=== PATIENT | male | born 1955 | race Caucasian/White ===

== ENCOUNTER 2019-11-21 09:55 | Outpatient (CLI) | payer OTHER, MEDICARE, SELFPAY | END 2019-11-21 09:56 | disposition home or self-care (01) | PROVIDERS: PCP Internal Medicine; Visit Provider Internal Medicine | DX: H90.3 Sensorineural hearing loss, bilateral (principal) | CPT/HCPCS: 92557; 92567 ==

== ENCOUNTER 2020-01-15 11:00 | Outpatient (RCR) | payer OTHER, MEDICARE, SELFPAY ==
--- NOTE | 2020-01-09 13:30 | PTOPEVAL ---
PHYSICAL THERAPY EVALUATION AND PLAN OF CARE 01-09-2020 The PT evaluation was completed for the diagnosis of gait instability. The plan of treatment is scheduled for 2x/week for 3 weeks. Thank you for referring Mr. Vázquez to [facility][Note 3]. Please review, sign, date and return this plan of care [facility]. I agree with and certify that the following plan of care is medically necessary. Referring Physician Date Attending Provider: Melissa Ugalde, DAT *PT Outpatient Evaluation Start: 01/09/20 12:40 Document 01/09/20 12:40 MARCIN (Rec: 01/09/20 13:30 MARCIN [id number]) Outpatient Past Medical History Neurological History Hx Cerebrovascular Accident (CVA) Yes: 2007 Hx Other Neurological Disorders Yes: neuropathy in both lower legs and feet Cardiovascular History Hx Cardiac Catheterization Yes Hx Congenital Heart Disease Yes Hx Coronary Artery Bypass Graft Yes: 2003 Hx Coronary Stent Yes: 3 stents Hx Hypertension Yes: meds Hx Myocardial Infarction Yes: 2003 Hx Pacemaker Yes Respiratory History Hx Respiratory Disorders No Significant History Gastrointestinal History Hx Cholecystectomy Yes: 2008 Genitourinary History Hx Genitourinary Disorders No Significant History Musculoskeletal History Hx Back Pain Yes: L hip and back-pain injections, bulging discs- injections Hx Orthopedic Surgery Yes: bilateral knee arthroscopy; L knee continues ache Hx Other Musculoskeletal Disorders Yes: R little toe surgery; Endocrine History Hx Diabetes Yes: pump HEENT History Hx Cataracts Yes: bilateral removal Reproductive History Hx Reproductive Disorders No Significant History Psychosocial History Hx Psychiatric Disorders No Significant History Pain History History of Any Previous or Ongoing No Significant History Instance of Pain Anesthesia History Hx Anesthesia Reactions No Significant History Evaluation Information Problem Diagnosis decreased mobility Onset few years Subjective Information gradually more problems with Query Text:As Reported By Patient/ walking, balance and mobility; Family saw Dr Birmingham-CT scan back; under care for back pain/injections ; reports 10 times in past 6 months; get lightheaded and unstable; L knee unstable; falls on uneven surface-- stairs, yard, ramps; problems getting
--- NOTE | 2020-01-13 10:40 | PCPTNOTE ---
Patient called & cancelled scheduled appointment this date due to not feeling well, called.
--- NOTE | 2020-01-21 09:25 | PCPTNOTE ---
Patient called & cancelled all scheduled appointment this date due to MD requesting patient not to drive anymore due to episodes of passing out.
--- NOTE | 2020-01-21 15:50 | PCPTNOTE ---
PHYSICAL THERAPY DISCHARGE 01-21-2020 Attending Provider: Melissa Ugalde, WET MACHINE TENDER-C Patient:Froylan Vázquez Date of :1955 Mr. Vázquez received the PT evaluation on January 08 and one treatment session for the diagnosis of gait imbalance. He called today and canceled all of the PT appointments due to not being able to drive, due to passing out. Therefore he will be discharged at this time. The goals were not addressed. Thank you for referring Froylan to [facility]. Please review, sign, date and return this discharge summary STEVIE. I have been updated about the patient's current status and I agree with discharge from the above service at this time. Referring Physician Date
== END 2020-01-22 08:43 | disposition home or self-care (01) ==
LOC: ANHPT 11:00
PROVIDERS: PCP Internal Medicine; Visit Provider Nurse Practitioner
DX: R26.89 Other abnormalities of gait and mobility (principal); Z74.09 Other reduced mobility
CPT/HCPCS: 97110; 97161

== ENCOUNTER 2020-01-28 08:54 | Outpatient (CLI) | payer OTHER, MEDICARE, SELFPAY ==
--- NOTE | ~2020-01-28 | CT_ITS ---
EXAMINATION: CT brain wo con DATE: 01/28/2020 10:49 INDICATION: Syncope. Collapse. TECHNIQUE: Computed tomography (CT) of the head was performed without intravenous contrast. The mA wa s adjusted according to patient size. Iterative reconstruction technique was employed. Exam dose: 60 5.33 mGy-cm total exam DLP. COMPARISON: 07/23/2019 CT brain FINDINGS: No intracranial mass lesion or hemorrhage or cerebrovascular accident, midline shift or mas s effects. There is mild cerebral and cerebellar volume loss not inconsistent with patient age. No ferris bdural or epidural hematoma is evident. There are internal carotid artery calcifications. There is nonspecific diminished attenuation of the cerebral white matter, likely due to chronic small vessel ischemic changes. Bone windows reveal no fracture or bone destruction of the cranial vault. Included mastoid air cells and paranasal sinuses are normally developed and aerated. IMPRESSION: No acute intracranial finding Reviewed, dictated and finalized at [facility]. Reviewed, dictated and finalized at location [facility].
[2020-01-28 10:09] LABS: Estimated Glomerular Filt Rate 26
== END 2020-01-28 08:55 | disposition home or self-care (01) ==
PROVIDERS: PCP Internal Medicine; Visit Provider Psychiatry & Neurology Neurology
DX: R55 Syncope and collapse (principal)
CPT/HCPCS: 36415; 70450

== ENCOUNTER 2020-02-26 10:27 | Outpatient (CLI) | payer OTHER, MEDICARE, SELFPAY ==
[2020-02-26 14:20] LABS: Vitamin D 25 Hydroxy 39.1 ng/mL
== END 2020-02-26 10:28 | disposition home or self-care (01) ==
LOC: ANHLAB 10:30
PROVIDERS: PCP Family Medicine; Visit Provider Family Medicine
DX: E10.9 Type 1 diabetes mellitus without complications (principal); I25.10 Atherosclerotic heart disease of native coronary artery without angina pectoris; Z79.899 Other long term (current) drug therapy; R42 Dizziness and giddiness; R55 Syncope and collapse; H81.12 Benign paroxysmal vertigo, left ear; R79.89 Other specified abnormal findings of blood chemistry; E78.2 Mixed hyperlipidemia; E78.5 Hyperlipidemia, unspecified; I10 Essential (primary) hypertension; E11.9 Type 2 diabetes mellitus without complications
CPT/HCPCS: 36415; 82306

== ENCOUNTER 2020-03-01 04:30 | Inpatient (IN) | payer OTHER, MEDICARE, SELFPAY ==
[2020-03-01] VITALS (16 sets, daily range): BP systolic 78–138; BP diastolic 47–65; PULSE 62–74; RESP 15–25; TEMP 36.3–39; O2SAT 96–100; BMI 32.2; BMI 32.5
--- NOTE | ~2020-03-01 | US_ITS ---
US renal BI 03/02/2020 11:08 Procedure: Realtime transabdominal ultrasound of the kidneys and bladder. Indication: Acute renal failure Comparison: No prior studies for comparison. Findings: Renal echotexture is normal bilaterally without hydronephrosis, contour deforming mass or r enal calculus. The right kidney measures 12.6 cm and left kidney measures 11 cm. There is a 1.5 cm le ft renal cyst. Bladder within normal limits. Impression: 1: Unremarkable renal ultrasound. No stones, solid masses or hydronephrosis. Reviewed, dictated and finalized at location [facility]. Impression: 1: Unremarkable renal ultrasound. No stones, solid masses or hydronephrosis.
--- NOTE | ~2020-03-01 | XR_ITS ---
EXAMINATION: XR chest 2V EXAM DATE: 03/01/2020 05:02 INDICATION: Weakness. Left hemiparesis. TECHNIQUE: Frontal and lateral projections of the chest obtained and reviewed. Comparison is made to prior examination from 10/18/2019. FINDINGS: Sternotomy wires are present without findings to suggest sternal dehiscence. There is a du al lead pacemaker/AICD seen with leads projecting over the expected locations of the right atrial allen endage and right ventricle. The cardiomediastinal silhouette is prominent but magnified on this AP te chnique. No confluent consolidation, pneumothorax or pleural effusion suspected. There are no osseous abnormalities identified. IMPRESSION: No acute cardiopulmonary findings. Reviewed, dictated and finalized at location A.
--- NOTE | ~2020-03-01 | CT_ITS ---
EXAMINATION: CT brain wo con EXAM DATE: 03/01/2020 05:10 INDICATION: Left-sided hemiparesis. Left leg paresthesia. TECHNIQUE: Spiral CT of the head was performed without contrast. Axial, coronal and sagittal images were reviewed. The dose-length product (DLP) for this examination was 605.33 mGy-cm. The exposure w as tailored according to patient size, and iterative reconstruction (ASIR) was used as additional dos e reduction technique. Comparison is made to prior examination from 02/27/2020. FINDINGS: There is no acute intraparenchymal hemorrhage. No evidence of intraparenchymal brain mass lesion. No evidence of acute infarction. Please note that initial head CT has limited sensitivity f or small or acute infarctions. There is mild periventricular and subcortical hypodensity, nonspecific but probably related to small vessel ischemic disease. There is mild prominence of the sulci and v entricles related to cerebral atrophy. There is intracranial carotid arteriosclerosis. There are n o extra-axial collections. There is no mass effect or midline shift. Patient has had bilateral ocul ar lens surgery. Soft tissue is unremarkable. The visualized sinuses and mastoid air cells are well aerated. There is no significant interval change. IMPRESSION: 1. No acute intracranial findings. 2. Chronic age related findings. Reviewed, dictated and finalized at location A.
--- NOTE | 2020-03-01 04:48 | ECG_ITS ---
Measurements Intervals Adams Rate: 72 P: -60 VA: 204 QRS: -18 QRSD: 170 T: 199 QT: 423 QTc: 465 Interpretive Statements SINUS RHYTHM LEFT BUNDLE BRANCH BLOCK BASELINE ARTIFACT- I, II, III, AVR, AVL, AVF, V4-V6 ABNORMAL ECG Electronically Signed On 03-01-2020 7:14:15 CDT by Ryley Chavez D.O.
[2020-03-01 04:51] LABS: Glucose Point of Care 190 (65-105)
--- NOTE | 2020-03-01 04:51 | ED.NEUROSD ---
HPI - Neuro Symptoms/Deficit General Chief Complaint: Neuro Symptoms/Deficit Stated Complaint: LEFT LEG NUMBNESS Time Seen by Provider: 03/01/20 04:48 History of Present Illness HPI Narrative: Awoke from sleep early this morning with weakness in the left arm and leg. Initially went back to sleep thinking that it would resolve on its own. Still there when he woke up again. Initially not able to move them at all. Strength is nearly back to normal at this time. He has been having issues with low blood pressure recentl. Currently wearing an event monitor. His believes that he had a fever earlier. He denies chest pain, nausea, diarrhea, palpitations, cough, SOB. Related Data Home Medications Medication Instructions Recorded Confirmed bumetanide 2 mg tablet 2 mg PO DAILY 08/23/19 02/18/20 carvedilol 6.25 mg tablet 6.25 mg PO BID 08/23/19 02/18/20 multivitamin 1 tablet PO DAILY 08/23/19 02/18/20 nitroglycerin 0.4 mg sublingual 0.4 mg SUBLINGUAL Q5M PRN 08/23/19 02/18/20 tablet aspirin 81 mg tablet,delayed 81 mg PO DAILY 09/01/19 02/18/20 release lancets #50 each 09/01/19 02/18/20 rosuvastatin 40 mg tablet 40 mg PO DAILY 09/01/19 02/18/20 cholecalciferol (vitamin D3) 100 4,000 unit PO DAILY 12/24/19 02/18/20 mcg (4,000 unit) capsule levetiracetam 250 mg tablet 250 mg PO .qhs tablet 02/18/20 02/18/20 ramipril 2.5 mg capsule 2.5 mg PO DAILY 02/24/20 Allergies Allergy/AdvReac Type Severity Reaction Status Date / Time vancomycin Allergy Mild Itching at Verified 03/01/20 05:18 IV site Review of Systems Review of Systems: All systems reviewed & are unremarkable except as noted in HPI and below Constitutional: Constitutional: Denies chills, Denies fever(s) and Reports weakness ENT: Denies dizziness Cardiovascular: Cardiovascular: Denies chest pain Respiratory: Respiratory: Denies cough and Denies dyspnea Gastrointestinal: Gastrointestinal: Denies abdominal pain Genitourinary: Genitourinary: Denies hematuria, Denies oliguria and Denies dysuria Integumentary/Breasts: Skin/Breast: Reports system reviewed and no additional complaints, except as docu Neurologic: Denies confusion, Denies dizziness, Denies syncope and Reports focal weakness PMFSH Past Medical History Medical History CAD (coronary artery disease) GERD (gastroesophageal reflux disease) History of stroke Hyperlipidemia Hypertension Pancreatitis Surgical History Surgical History History of arthroscopy of left knee History of arthroscopy of right knee History of cardiac catheterization History of carpal tunnel repair History of cholecystectomy History of coronary artery stent placement History of repair of rotator cuff History of right inguinal hernia repair Hx of CABG Pacemaker Social History Social History Smoking status: Never smoker Second hand tobacco smoke exposure: No Alcohol intake: current Drinks per week: 1 Substance use: never Gender identity (if verbalized by the patient): Male Spiritual care concerns: No Agree to blood products: Yes Exam Const: General: no acute distress and alert Nutritional Appearance: well nourished Orientation/consciousness: patient oriented x3 HENMT: Head: normal to inspection Neck: Neck: normal visual inspection and no lymphadenopathy Chest: Chest palpation & inspection: no tenderness Resp: Effort & Inspection: normal respiratory effort Auscultation: clear to auscultation bilaterally, no rales, no rhonchi and no wheezes Cardio: Jugular venous distension: no JVD Rate: regular rate Rhythm: regular rhythm GI: Inspection: non-distended GI Palp: Yes Soft to palpation and No Tenderness to palpation present (GI) Skin: General skin exam: normal color Neuro: General: patient oriented x3, moves all extremiti
[2020-03-01 05:06] LABS: Basophils Percent Auto 0.3 % (0.2-1.2); Eosinophils Absolute Auto 0.2 K/mm3 (0-0.3); Eosinophils Percent Auto 1.3 % (0-4.4); Hematocrit 40.7 % (42.0-52.0); Hemoglobin 13.5 g/dL (14.0-18.0); Immature Granulocyte Absolute 0.06 K/mm3 (0.00-0.031); Immature Granulocyte Percent A 0.4 % (0-0.5); Lymphocytes Absolute Auto 0.57 K/mm3 (0.9-3.2); Mean Corpuscular HGB Conc 33.2 g/dl (32-36); Mean Corpuscular Volume 87.3 fl (80-100); Mean Platelet Volume 10.8 fl (7.4-10.4); Monocytes Absolute Auto 0.7 K/mm3 (0.1-0.6); Monocytes Percent Auto 5.1 % (2.6-8.5); Neutrophils Absolute Auto 12.8 K/mm3 (1.3-6.7); Neutrophils Percent Auto 88.9 % (45.5-73.1); Platelet Count Result 161 k/mm3 (150-375); Red Blood Count 4.66 M/mm3 (4.6-6.20); Red Cell Distribution Width 14.6 % (11.5-14.5); White Blood Count 14.4 K/mm3 (4.5-10.0)
--- NOTE | 2020-03-01 05:10 | PC.NURSE ---
pt to xray
[2020-03-01] MEDS: SODIUM CHLORIDE 0.9% IV 1,000 ML 999 ML IV CONT (05:17)
[2020-03-01 05:18] LABS: Alanine Aminotransferase 25 U/L (4-50); Albumin Level 4.1 g/dL (3.5-5.1); Alkaline Phosphatase 71 U/L (38-126); Aspartate Amino Transferase 24 U/L (17-59); Bilirubin,Total 2.1 mg/dL (0.2-1.3); Blood Urea Nitrogen 66 mg/dL (9-20); Carbon Dioxide 23 mmol/L (22-30); Chloride 103 mmol/L (98-107); Estimated CRCL calculation 35 ml/min; Estimated Glomerular Filt Rate 29; Glucose 209 mg/dL (75-110); INR 1.1; Partial Thromboplastin Time 26.8 SECONDS (22.3-36.8); Potassium 4.7 mmol/L (3.4-5.0); Prothrombin Time 14.1 Seconds (11.1-14.7); Sodium 138 mmol/L (137-145)
[2020-03-01 05:20] LABS: CRP 3.1 mg/dL (<1.0)
--- NOTE | 2020-03-01 05:20 | PC.NURSE ---
pt provided w/ urinal for sample
[2020-03-01 05:41] LABS: Troponin I 0.045 ng/mL (0.000-0.034)
[2020-03-01 05:44] LABS: Lactic Acid Reflex 1.5 mmol/L (0.7-2.1)
[2020-03-01 06:11] LABS: Add Urine Microscopic? YES; Appearance Urine Clear (Clear); Bilirubin Urine Negative (Negative); Blood Urine Negative (Negative); Color Urine Yellow (Yellow); Glucose Urine UA Negative (Negative); Hyaline Casts Urine 30-49 /lpf; Ketones Urine Negative (Negative); Leukocyte Esterase Ur Negative LEU/UL (Negative); Mucus Urine Rare /lpf; Nitrate Urine Negative (Negative); Protein Urine 1+ mg/dL (Negative); RBC Urine 0-2 /hpf (0-2); Specific Grav Ur 1.016 (1.001-1.035); Squamous Epithelial Cell Urine Rare /hpf (Few); Urobilinogen Urine Negative mg/dL (<2.0); WBC Urine 0-3 /hpf
--- NOTE | 2020-03-01 06:40 | PC.NURSE ---
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
[2020-03-01 09:09] LABS: Glucose Point of Care 256 (65-105)
[2020-03-01 11:28] LABS: Glucose Point of Care 289 (65-105)
--- NOTE | 2020-03-01 11:56 | ADMGEN ---
This patient, Froylan Vázquez, was admitted to IMU Room 201-01. Patient/family oriented to hospital policies and general routines including ID bracelet, bed and alarms, visiting hours, pain management, procedures, bathroom and other care routines, personal items, smoking policy, room service/diet, and visiting hours. Valuables list has been completed. Information on how to activate the Rapid Response Team has been discussed. Patient/Family are encouraged to report perceived risks to care and to ask questions if they do not understand what they are told or what they should do.
--- NOTE | 2020-03-01 15:19 | PM.IMHP ---
H&P: HPI History of Present Illness Chief complaint: Left sided weakness/leukocytosis Narrative: Froylan Vázquez is a 65 year old male who has been running low-grade fevers on and off for at least 3 weeks according to his . The patient stated that through the night he was having chills and was shivering. The patient stated he was at home [facility] approximately 2 weeks ago. The patient has been feeling dizzy and his diastolic blood pressures have been low. The patient stated that he had a CT of his brain there and had a echo bubble study done there and his carotids were checked. The patient stated that next month he is due to have MRI ats. He has a pacemaker and has not been able to get MRI elsewhere. The patient had a previous stroke. However there was no acute changes on a CT scan today. The patient stated that he woke up this morning had weakness in his left arm and left leg. His that maybe his speech was slightly slurred but it was just slow. The stated the high is his temperature got was around 100 over the last 3 weeks. He states that he has tenderness on his lower abdomen only down his feet and it is just on the skin surface but has never been red. He took his insulin pump off today. He felt like he was not able to manage his blood sugars. He said his last A1c was 8.6. Gap is right at 12 today. His blood sugar was noted to be 256 and then 289. His white count was noted to be 14.4 H&H 13.5 and 40.7 which is close to his baseline. Troponin 0.045 C reactive protein 3.1. The patient denies any chest pain and a has a history of coronary artery disease. He has had 3 stents and a 5 vessel CABG in the past. Creatinine is 2.3 which is down from last month but looks like his baseline is anywhere from 1.2-1.9. The patient does have diabetic neuropathy. He recently went to the eye doctor for retinopathy and gets laser treatments. Patient was seen by primary care doctor just a few days ago for the dizziness and was felt that the patient was having episodes of syncope due to hypotension. Patient also recently saw his dividing machine operator Jovon'jayson changed his medications around patient was also treated for a urinary tract infection a couple weeks ago he had a prescription for Macrobid at that time. It looks like maybe on the of this month. Patient has been very achy. He refused flu swab.. On IV fluids in the emergency. CT of the brain shows nothing acute. Date of service is 03/01/2020 Review of Systems Review of Systems: Narrative: Fever chills shivering. No cough no nausea no vomiting no diarrhea. No sores. Patient states that his skin is very tender from his abdomen down and his skin hurts but there is no redness. He does have neuropathy to his lower extremities All systems reviewed & are unremarkable except as noted in HPI and below Constitutional: Constitutional: Reports as per HPI and Reports no additional constitutional complaints Eyes: Eyes: Reports as per HPI and Reports no additional eye complaints ENT: Reports system reviewed and no additional complaints, except as documented and Reports Normal hearing present Cardiovascular: Cardiovascular: Reports no additional cardiovascular complaints Respiratory: Respiratory: Reports no additional respiratory complaints and Reports no additional respiratory complaints Gastrointestinal: Gastrointestinal: Reports as per HPI and Reports no additional gastrointestinal complaints Musculoskeletal: Musculoskeletal: Reports no additional musculoskeletal complaints Integumentary/Breasts: Skin/Breast: Reports system reviewed and no additional complaints, except as docu and Reports as per HPI Neurologic: Reports system reviewed and no additional complaints, except as documented, Reports as per HPI and Reports Normal hearing present Psychiatric: Psychiatric: Reports no additional psychiatric complaints and Reports as per HPI Endocrine: Endocrine: Reports no additional endocrine compl
[2020-03-01] MEDS: ACETAMINOPHEN 325 MG TABLET 650 MG PO (15:58)
[2020-03-01 16:53] LABS: Glucose Point of Care 261 (65-105)
[2020-03-01] MEDS: GABAPENTIN 300 MG CAPSULE PO (16:59)
[2020-03-01 17:36] LABS: Creatinine Urine 95.4 mg/dL
[2020-03-01 17:38] LABS: Potassium Urine Random 44.5 meq/L; Sodium Urine Random 26 meq/L
[2020-03-01 17:53] LABS: Total Protein Urine Random 46 mg/dL
[2020-03-01 17:58] LABS: Influenza Control Positive
[2020-03-01 17:59] LABS: Urine Cotinine NEGATIVE
--- NOTE | 2020-03-01 18:19 | PC.NURSE ---
This patient, Froylan Vázquez, was transferred to [ICU 2 ] on 03/01/20 at 1750 Personal belongings sent with patient. Belongings list checked and signed with receiving [ ]. Report given to [Natty ]. Appropriate documentation sent with patient.
[2020-03-01] MEDS: INSULIN ASPART (*BKC) 100 UNITS/ML SUB-Q (18:42)
[2020-03-01] MEDS: HEPARIN SODIUM 5,000 UNITS/ML VIAL 5000 UNITS SUB-Q (20:08)
[2020-03-01] MEDS: levETIRAcetam 250 MG TABLET PO (20:08)
[2020-03-02] VITALS (20 sets, daily range): BP systolic 104–159; BP diastolic 58–99; PULSE 60–100; RESP 14–20; TEMP 36.4–36.8; O2SAT 95–99
[2020-03-02 05:40] LABS: Basophils Percent Auto 0.5 % (0.2-1.2); Eosinophils Absolute Auto 0.4 K/mm3 (0-0.3); Eosinophils Percent Auto 5.4 % (0-4.4); Hematocrit 38.9 % (42.0-52.0); Hemoglobin 12.8 g/dL (14.0-18.0); Immature Granulocyte Absolute 0.02 K/mm3 (0.00-0.031); Immature Granulocyte Percent A 0.3 % (0-0.5); Lymphocytes Absolute Auto 1.08 K/mm3 (0.9-3.2); Lymphocytes Percent Auto 13.9 % (18.3-44.2); Mean Corpuscular HGB Conc 32.9 g/dl (32-36); Mean Corpuscular Hemoglobin 29.1 pg (26-34); Mean Corpuscular Volume 88.4 fl (80-100); Monocytes Absolute Auto 0.8 K/mm3 (0.1-0.6); Monocytes Percent Auto 9.8 % (2.6-8.5); Neutrophils Absolute Auto 5.5 K/mm3 (1.3-6.7); Neutrophils Percent Auto 70.1 % (45.5-73.1); Platelet Count Result 119 k/mm3 (150-375); Red Cell Distribution Width 14.4 % (11.5-14.5); White Blood Count 7.8 K/mm3 (4.5-10.0)
[2020-03-02 05:54] LABS: Lactic Acid 1.3 mmol/L (0.7-2.1)
[2020-03-02 06:10] LABS: Alanine Aminotransferase 17 U/L (4-50); Albumin Level 3.4 g/dL (3.5-5.1); Alkaline Phosphatase 62 U/L (38-126); Aspartate Amino Transferase 18 U/L (17-59); Bilirubin,Total 2.4 mg/dL (0.2-1.3); Blood Urea Nitrogen 46 mg/dL (9-20); CRP 23.2 mg/dL (<1.0); Calcium 8.4 mg/dL (8.4-10.2); Carbon Dioxide 24 mmol/L (22-30); Chloride 104 mmol/L (98-107); Estimated CRCL calculation 55 ml/min; Estimated Glomerular Filt Rate 51; Glucose 265 mg/dL (75-110); Magnesium 2.2 mg/dL (1.6-2.3); Potassium 4.2 mmol/L (3.4-5.0); Sodium 136 mmol/L (137-145)
--- NOTE | 2020-03-02 08:19 | PM.IMPN ---
Progress Note: A&P Assessment and Plan (1) Fever: Code(s): R50.9 - Fever, unspecified Status: Acute Assessment and Plan: Temp to 102. CXR clear. UA clear. Influenza negative. BCx NGTD. COVID negative now. No clear source for fever. CRP 23 but WBC normal. Low plt to 119 but doubt TTP given the improvement. Consider lymphoma or autoimmune. Consider CT scan of the chest/abdomen/pelvis. Check LDH, etc. (2) Acute left-sided weakness: Code(s): R53.1 - Weakness Status: Acute Assessment and Plan: Patient has hx of CVA with residual left sided weakness. Patient had an acute worsening of the left sided weakness but this has resolved. CT brain showing no acute findings. Suspect the weakness is just worsening of his chronic weakness related to the fever. He has a MRI scheduled for later on in March. Patient up walking to the BR. Consider PT/OT but seems to have recovered well. Contineu to monitor. (3) Vertigo: Onset Date: ~01/2020 Code(s): R42 - Dizziness and giddiness Status: Acute Assessment and Plan: The patient is being worked up for this. Patient stated he has been having syncopal episodes and seizures and is due to have a MRI next month at [facility] that is Pacemaker friendly. Defer to outpatient for further. Neuro consult ordered. (4) Congestive heart failure: Code(s): I50.9 - Heart failure, unspecified Status: Chronic Assessment and Plan: BP soft on admission so Coreg, bumex and rampipril on hold. Will monitor for today. Add back meds as BP tolerates. BP better; will resume Coreg low dose and follow. (5) Elevated troponin: Code(s): R79.89 - Other specified abnormal findings of blood chemistry Status: Acute Assessment and Plan: Trop slightly elevated to 0.045 but normal on repeat. No complaints of CP. Suspect this is related to the the TRNETON. EKG showing LBBB but seen last admission. Continue to monitor. Cardiology consulted and appreciate their input. (6) ARF (acute renal failure): Code(s): N17.9 - Acute kidney failure, unspecified Status: Acute Assessment and Plan: Cr 2.3 on admission but improved with IV fluids. Renal ultrasound ordered. Discussed with Nephrology. Continue to monitor. This was similar to his last hospitalization. Renal US normal. (7) Hyperlipidemia: Code(s): E78.5 - Hyperlipidemia, unspecified Status: Chronic Assessment and Plan: LFTs okay. Continue with Crestor. (8) Type 1 diabetes mellitus on insulin therapy: Code(s): E10.9 - Type 1 diabetes mellitus without complications Status: Chronic Assessment and Plan: A1c 13.8 in August but he states his last one 8.6. Glucose reviewed on 03/02/20. Glucose running in the 200's. Will add Lantus tonight and consider Novolog at meals. If feels better tomorrow, will consider resuming insulin pump tomorrow. (9) Diabetic neuropathy associated with diabetes mellitus due to underlying condition: Code(s): E08.40 - Diabetes mellitus due to underlying condition with diabetic neuropathy, unspecified Status: Chronic Assessment and Plan: Stable. Gabapentin resumed. (10) Benign essential hypertension: Code(s): I10 - Essential (primary) hypertension Status: Acute Assessment and Plan: BP reviewed on 03/02/20. Blood pressure meds remain on hold. Contineu to monitor. Resume meds as BP tolerates. (11) CAD (coronary artery disease): Code(s): I25.10 - Atherosclerotic heart disease of [place] coronary artery without angina pectoris Status: Chronic Assessment and Plan: Isosorbide on hold. Continue with aspirin and Plavix. Subjective Date/time seen: 03/02/20 08:19 Interval history: 65yo male with hx of CVA and DM here for left sided weakness and fever. History reviewed. Patient denies any chest p
[2020-03-02] MEDS: GABAPENTIN 300 MG CAPSULE PO ×3 (08:22→17:01)
[2020-03-02] MEDS: levETIRAcetam 250 MG TABLET PO ×2 (08:22→21:11)
[2020-03-02] MEDS: CLOPIDOGREL BISULFATE 75 MG TABLET PO (08:22)
[2020-03-02] MEDS: ROSUVASTATIN 10 MG TABLET 40 MG PO (08:22)
[2020-03-02] MEDS: ISOSORBIDE MONONITRATE 30 MG TAB.ER.24H PO (08:22)
[2020-03-02] MEDS: ASPIRIN 81 MG ENTERIC TABLET PO (08:22)
[2020-03-02] MEDS: PANTOPRAZOLE 40 MG TABLET PO (08:22)
[2020-03-02] MEDS: CHOLECALCIFEROL 1,000 UNIT TABLET 4000 UNITS PO (08:22)
[2020-03-02] MEDS: HEPARIN SODIUM 5,000 UNITS/ML VIAL 5000 UNITS SUB-Q ×2 (08:23→23:00)
[2020-03-02] MEDS: INSULIN ASPART (*BKC) 100 UNITS/ML SUB-Q ×3 (08:23→17:08)
--- NOTE | 2020-03-02 08:53 | PM.CNNEP ---
Assessment and Plan Assessment and plan (1) ARF (acute renal failure): Code(s): N17.9 - Acute kidney failure, unspecified Status: Acute (2) Fever: Code(s): R50.9 - Fever, unspecified Status: Acute (3) Benign essential hypertension: Code(s): I10 - Essential (primary) hypertension Status: Acute (4) Elevated troponin: Code(s): R79.89 - Other specified abnormal findings of blood chemistry Status: Acute Assessment and Plan: . Additional Plan Froylan has acute kidney injury/acute renal failure as evidenced by his labs on admission. However, as already noted by labs done this morning, his kidney function has already improved significantly. Testing today in conjunction with history would argue that he probably had significant volume depletion possibly from dehydration or possibly due to over-diuresis along with his antihypertensive medications. His urine electrolytes are quite suggestive of volume depletion/prerenal azotemia as well. Furthermore, with IV fluids as well as holding his antihypertensive medications which included diuretics, his kidney function is already improving. He does have a low platelet count which brings up the concern for possible TTP or ITP particularly given the history however the fact that his kidney functions improves remarkably since admission with conservative therapy seems argue less likely against this. At this point, I would follow the trend of his repeat labs and urine output on the hopes that ongoing conservative therapy that is already been instituted will get his kidney function back to baseline. If it fails to do so, then I will proceed with further testing to ensure we are not missing any other acute pathology that may be affecting his kidney function. I will continue follow patient with you while he remains hospitalized and make further recommendations during his hospital course Thank you for allowing me to participate in care this patient. History of Present Illness Reason for Consult Consult date: 03/02/20 Reason for consult: acute renal failure Chief Complaint Chief complaint: Left sided weakness/leukocytosis History of Present Illness Narrative: The patient is a 65 year old male with a past medical history as outlined who presented to [facility] ER with complaints of low-grade fevers and weakness. According to the patient as well as review of the electronic medical record, he has been having on and off fevers for last 3 weeks. More recently which prompted his visit to the ER, he had had significant chills and significant shivering. Associated symptoms included feeling dizzy and lightheaded as well as episodes of low blood pressure. Apparently, he was recently hospitalized at [facility] 40 symptoms and had extensive workup and evaluation at that time which included imaging of his brain, echocardiogram, and bilateral carotids which was essentially unremarkable except for his known history and the neck is tentative says Khushio was an MRI of his brain but due to the fact that he had a pacemaker this could not be done during that hospital stay. He more recently saw his primary care physician for some of the symptoms and was felt that his profound hypotension at that time was likely the culprit with regard to his lightheadedness and dizziness. In any case, as already mentioned, because of the multitude of the symptoms as well as his recent hospitalization and the presence of chills and shivers more recently, he presented to [facility] ER for further evaluation. Workup and evaluation emergency room demonstrated the patient to be quite hypotensive with a systolic BP in the 80s. Routine blood test demonstrated elevated white blood cell count an elevated BUN and creatinine above his baseline. CT scan of his brain as well as his chest x-ray was without any acute pathology. Given the constellation of symptoms that led to
--- NOTE | 2020-03-02 11:18 | PM.CNCAR ---
Assessment and Plan Assessment and plan (1) Elevated troponin: Code(s): R79.89 - Other specified abnormal findings of blood chemistry Status: Acute Assessment and Plan: Mild, indeterminate troponin elevation at this time. No anginal symptoms. Left bundle branch on EKG. Will clarify chronicity. Clinically, presentation not consistent with acute coronary syndrome most likely type 2 infarct secondary to acute on chronic renal insufficiency, known LV dysfunction and underlying CAD. Repeat troponin for trend. (2) CAD (coronary artery disease): Code(s): I25.10 - Atherosclerotic heart disease of [place] coronary artery without angina pectoris Status: Chronic Assessment and Plan: History of remote CABG, PCI circumflex 2014, high-grade AV block 2014 Medtronic dual chamber pacemaker, acute coronary syndrome December 2016 high-grade stenosis RCA 2 drug-eluting stents proximal distal RCA known POULTRY KILLER LAD, patent RUIZ to LAD, patent vein graft to diagonal branch. Continue dual antiplatelet therapy, statin. (3) History of syncope: Code(s): Z87.898 - Personal history of other specified conditions Status: Acute Assessment and Plan: Documented significant orthostasis in setting or ARF at presentation. Outpatient pt description of events varies without clear syncope but noted impaired level of consciousness which may be consistent with seizure. Depending upon context and postural orientation, sxs may also be related to intravascular volume depletion and/or autonomic dysfunction. After extensive review of outpatient records from [facility] and clinical description by patient as well as documented orthostasis here in the hospital likely related to intravascular volume depletion +/- autonomic dysfunction. Low-grade febrile illness coupled with antihypertensives and previous diuretic use (Bumex) may explain recurrent episodes with acute on chronic renal insufficiency improved with IV fluids. Seizure disorder cannot be excluded and was started on Keppra by Dr. Birmingham as an outpatient. He has not had recurrent events since starting Keppra. Neurology to see pt. (4) Congestive heart failure: Code(s): I50.9 - Heart failure, unspecified Status: Chronic Assessment and Plan: Compensated at this time. Monitor volume status closely. Continue medical therapy continue low doses carvedilol as BP tolerates unless significant orthostasis persists. (5) Fever: Code(s): R50.9 - Fever, unspecified Status: Acute Assessment and Plan: Etiology unknown. COVID-19 pending. Given the patient's intermittent fevers, 102? at presentation, varying symptoms including myalgias, shivering alternating chills, weakness concerning for viral syndrome. Thrombocytopenia concerning and is new compared to prior records end of January at [facility]. Symptoms may be consistent with COVID-19. Flu swab negative. Patient denied known sick contacts. (6) Orthostatic hypotension: Code(s): I95.1 - Orthostatic hypotension Status: Acute Assessment and Plan: As above. Hold on diuretic therapy and EFRAIN-inhibitor. May hold isosorbide mononitrate if symptomatic orthostasis. (7) Acute on chronic renal failure: Code(s): N17.9 - Acute kidney failure, unspecified; N18.9 - Chronic kidney disease, unspecified Status: Acute Assessment and Plan: Improved with IV fluid since admission. Renal ultrasound negative. Febrile illness may having contributing to intravascular volume depletion in addition to antihypertensive therapy contributing to worsening renal function. (8) Thrombocytopenia: Code(s): D69.6 - Thrombocytopenia, unspecified Status: Acute Assessment and Plan: Continue to monitor closely. Remains on dual antiplatelet therapy. If continues to decline check heparin-induced thrombocytopenia panel given recent hospitalization (9) Cardiomyopathy:
[2020-03-02 12:53] LABS: Troponin I 0.033 ng/mL (0.000-0.034)
[2020-03-02 17:31] LABS: SARS-CoV-2 RNA PCR Negative
[2020-03-02 18:12] LABS: Glucose Point of Care 329 (65-105)
[2020-03-02 18:12] LABS: Glucose Point of Care 339 (65-105)
[2020-03-02 18:12] LABS: Glucose Point of Care 277 (65-105)
[2020-03-02 21:25] LABS: Glucose Point of Care 364 (65-105)
[2020-03-02] MEDS: carvediloL 3.125 MG TABLET PO (23:00)
[2020-03-02] MEDS: INSULIN GLARGINE (*BKC) 100 UNITS/ML 20 UNITS SUB-Q (23:00)
[2020-03-03] VITALS (17 sets, daily range): BP systolic 99–164; BP diastolic 49–71; PULSE 58–74; RESP 16–20; TEMP 36.5–36.8; O2SAT 97–98; BMI 31.8
[2020-03-03 04:17] LABS: Basophils Percent Auto 0.3 % (0.2-1.2); Eosinophils Absolute Auto 0.4 K/mm3 (0-0.3); Eosinophils Percent Auto 5.5 % (0-4.4); Hematocrit 34.5 % (42.0-52.0); Hemoglobin 11.7 g/dL (14.0-18.0); Immature Granulocyte Absolute 0.02 K/mm3 (0.00-0.031); Immature Granulocyte Percent A 0.3 % (0-0.5); Lymphocytes Absolute Auto 1.11 K/mm3 (0.9-3.2); Lymphocytes Percent Auto 14.6 % (18.3-44.2); Mean Corpuscular HGB Conc 33.9 g/dl (32-36); Mean Corpuscular Hemoglobin 29.4 pg (26-34); Mean Corpuscular Volume 86.7 fl (80-100); Mean Platelet Volume 11.1 fl (7.4-10.4); Monocytes Absolute Auto 0.6 K/mm3 (0.1-0.6); Monocytes Percent Auto 8.4 % (2.6-8.5); Neutrophils Absolute Auto 5.4 K/mm3 (1.3-6.7); Neutrophils Percent Auto 70.9 % (45.5-73.1); Platelet Count Result 137 k/mm3 (150-375); Red Blood Count 3.98 M/mm3 (4.6-6.20); Red Cell Distribution Width 14.2 % (11.5-14.5); White Blood Count 7.6 K/mm3 (4.5-10.0)
[2020-03-03 05:39] LABS: Alanine Aminotransferase 16 U/L (4-50); Albumin Level 3.3 g/dL (3.5-5.1); Alkaline Phosphatase 53 U/L (38-126); Aspartate Amino Transferase 25 U/L (17-59); Blood Urea Nitrogen 37 mg/dL (9-20); CRP 16.3 mg/dL (<1.0); Calcium 8.5 mg/dL (8.4-10.2); Carbon Dioxide 20 mmol/L (22-30); Chloride 105 mmol/L (98-107); Estimated CRCL calculation 70 ml/min; Estimated Glomerular Filt Rate > 60; Glucose 378 mg/dL (75-110); Lactate Dehydrogenase 542 U/L (313-618); Magnesium 2.3 mg/dL (1.6-2.3); Potassium 4.6 mmol/L (3.4-5.0); Sodium 134 mmol/L (137-145)
[2020-03-03 08:10] LABS: Glucose Point of Care 324 (65-105)
[2020-03-03] MEDS: INSULIN ASPART (*BKC) 100 UNITS/ML SUB-Q ×2 (08:30→12:44)
[2020-03-03] MEDS: CHOLECALCIFEROL 1,000 UNIT TABLET 4000 UNITS PO (08:31)
[2020-03-03] MEDS: GABAPENTIN 300 MG CAPSULE PO ×2 (08:31→12:44)
[2020-03-03] MEDS: CLOPIDOGREL BISULFATE 75 MG TABLET PO (08:31)
[2020-03-03] MEDS: ROSUVASTATIN 10 MG TABLET 40 MG PO (08:31)
[2020-03-03] MEDS: levETIRAcetam 250 MG TABLET PO (08:32)
[2020-03-03] MEDS: ISOSORBIDE MONONITRATE 30 MG TAB.ER.24H PO (08:32)
[2020-03-03] MEDS: carvediloL 3.125 MG TABLET PO (08:32)
[2020-03-03] MEDS: ASPIRIN 81 MG ENTERIC TABLET PO (08:32)
[2020-03-03] MEDS: PANTOPRAZOLE 40 MG TABLET PO (08:32)
[2020-03-03] MEDS: HEPARIN SODIUM 5,000 UNITS/ML VIAL 5000 UNITS SUB-Q (08:32)
--- NOTE | 2020-03-03 11:07 | CONS_ITS ---
DATE OF CONSULTATION: HISTORY: A 65-year-old right-handed male, has been admitted to [facility] through the emergency room with the history of having a low-grade fever off and on for at least 3 weeks along with the chills and shivering at nighttime. He also reported that he was at the [facility] approximately 2 weeks ago and had been feeling dizzy with his diastolic blood pressure running low. He had a CT scan of the brain there and echo bubble study along with the carotid. Next month, he was supposed to have MRI at [facility]. He has a pacemaker and has not been able to get MRI elsewhere. CT scan at this particular time revealed no changes. He woke up this morning and had weakness in left upper and left lower extremity along with the possibly slurred speech. At night, his temperature was around 100 over the last 3 weeks. He also complained of being tender in the lower abdomen. He took his insulin pump off. He was unable to manage his blood sugar. His last A1c was 8.6 with a blood sugar of 256 and 289 and a WBC count of 14.4 with hemoglobin 13.5, which is at his baseline. His troponin was 0.05. C-reactive protein was 3.1. He had no associated chest discomfort and had no history of coronary artery disease. He has undergone 3 stents and 5-vessel CABG in the past. His creatinine is 2.3, which is down from the last month. He is recently seen by the eye physician with the documentation of retinopathy and he gets the laser treatment. He has been having syncopal episode due to hypotension. At the time of admission, he has ongoing history of as mentioned above: 1. Coronary artery disease with congestive heart failure and grade 1 diastolic dysfunction. 2. Diabetic retinopathy. 3. GERD. 4. Stroke. 5. Hyperlipidemia. 6. Hypertension. 7. Obstructive sleep apnea. 8. Pancreatitis. He has undergone multiple surgeries as mentioned, inguinal hernial repair, arthroplasty of the right ankle, arthroscopy of left knee and right knee, cardiac catheterization, carpal tunnel repair bilaterally, cholecystectomy, coronary artery stent placement x3, rotator cuff bilaterally, right inguinal hernial repair, pacemaker due to complete block. HABITS: He is never a smoker, never a drinker. MEDICATIONS: Has been taking multiple medications as outlined. ALLERGIES: HE IS ALLERGIC TO VANCOMYCIN. PHYSICAL EXAMINATION: VITAL SIGNS: Evaluation up until now revealed him to be afebrile with blood pressure of 78/47 and repeat 116/59. HEAD: Normocephalic with no cranial bruit. EAR, NOSE, THROAT: Normal. NECK: Supple with no cervical bruit. No thyromegaly. No lymphadenopathy. HEART: Regular. LUNGS: Clear to auscultation. ABDOMEN: Soft with no organomegaly. NEUROLOGICAL: He is awake, alert, oriented x3. Speech not dysphasic, not dysarthric, not dysphonic. Pupils round, regular. Gallardo of vision full. Extraocular movements full. Face symmetrical. Tongue midline. Motor examination revealed him to have decreased strength in the hands in addition to the decreased sensation distally. Reflexes sluggish and plantars downgoing. Range of motion of shoulders are also somewhat limited. Evaluation up until now revealed CBC with WBC 4.4, hemoglobin 13.5, platelet count 161. Basic metabolic panel normal except the BUN 66, creatinine 2.3, glucose 209, calcium 9.0. Troponin less than 0.045. Hepatic enzymes normal except total bilirubin is 2.1, and the UA is with 1+ protein. CT of the head negative. Chest x-ray negative. IMPRESSION: Intermittent recurrent neurological symptomatology for which patient has been advised by his previous neurologist to have the MRI at the [facility] because of the pacemaker, which is looking forward over the next 7-10 days. Otherwise, general
[2020-03-03 12:24] LABS: Glucose Point of Care 352 (65-105)
--- NOTE | 2020-03-03 12:55 | PM.PNCARD ---
Progress Note: A&P Assessment and Plan (1) Elevated troponin: Code(s): R79.89 - Other specified abnormal findings of blood chemistry Status: Acute Assessment and Plan: Mild, indeterminate troponin elevation at this time. No anginal symptoms. Clinically, presentation not consistent with acute coronary syndrome most likely type 2 infarct secondary to acute on chronic renal insufficiency, known LV dysfunction and underlying CAD. Patient will follow-up with Dr. Ramirez as an outpatient within the next 2-4 weeks. No further inpatient cardiovascular workup indicated at this time. Follow with PCP and Dr. Ramirez as an outpatient. Stable for discharge provided patient is asymptomatic and not significant orthostatic this afternoon. (2) CAD (coronary artery disease): Code(s): I25.10 - Atherosclerotic heart disease of [place] coronary artery without angina pectoris Status: Chronic Assessment and Plan: History of remote CABG, PCI circumflex 2014, high-grade AV block 2014 Medtronic dual chamber pacemaker, acute coronary syndrome December 2016 high-grade stenosis RCA 2 drug-eluting stents proximal distal RCA known DEVELOPING MACHINE TENDER LAD, patent RUIZ to LAD, patent vein graft to diagonal branch. Continue dual antiplatelet therapy, statin. (3) History of syncope: Code(s): Z87.898 - Personal history of other specified conditions Status: Acute Assessment and Plan: Significantly orthostatic this morning as documented. Repeat pending. If remains orthostatic would hold Bumex for now as well as isosorbide mononitrate. Monitor BP, ambulate with caution very closely. Report BP readings in symptoms to office. Monitor daily weight. (4) Congestive heart failure: Code(s): I50.9 - Heart failure, unspecified Status: Chronic Assessment and Plan: Compensated at this time. Monitor volume status closely. Continue medical therapy continue low doses carvedilol as BP tolerates unless significant orthostasis persists. Given recurrent falls, acute renal failure necessitating discontinuation of diuretic and EFRAIN-inhibitor therapy will hold for the time being although patient would clearly benefit and likely will require resumption in the near future. (5) Fever: Code(s): R50.9 - Fever, unspecified Status: Acute Assessment and Plan: No recurrence, COVID negative. Per primary service. (6) Orthostatic hypotension: Code(s): I95.1 - Orthostatic hypotension Status: Acute Assessment and Plan: As above. Hold on diuretic therapy and EFRAIN-inhibitor. Hold isosorbide mononitrate (7) Acute on chronic renal failure: Code(s): N17.9 - Acute kidney failure, unspecified; N18.9 - Chronic kidney disease, unspecified Status: Acute Assessment and Plan: Resolved with IV fluids and discontinuation EFRAIN-inhibitor and diuretic therapy. (8) Thrombocytopenia: Code(s): D69.6 - Thrombocytopenia, unspecified Status: Acute Assessment and Plan: Continue to monitor closely. Remains on dual antiplatelet therapy. If continues to decline check heparin-induced thrombocytopenia panel given recent hospitalization (9) Cardiomyopathy: Code(s): I42.9 - Cardiomyopathy, unspecified Status: Acute Assessment and Plan: EF 30-35%, compensated. Given left bundle, LV dysfunction and frequent pacing on last interrogation as appropriate in the future consider upgrade to biventricular device. Defer to Dr. Ramirez as outpatient. (10) Left bundle branch block: Code(s): I44.7 - Left bundle-branch block, unspecified Status: Acute Assessment and Plan: Follow-up with Dr. Ramirez as scheduled. (11) Pacemaker: Code(s): Z95.0 - Presence of cardiac pacemaker Status: Acute Assessment and Plan: May return child monitor. Subjective Date/time seen: Date of service: 03/03/20 12:55 Follow-up for elevated troponin, CAD
--- NOTE | 2020-03-03 18:00 | PM.DS ---
DS: Admitting Diagnosis Admitting Diagnosis Admitting Diagnosis: Fever, unspecified DS: Discharge Diagnosis Discharge Diagnosis (1) Fever: Code(s): R50.9 - Fever, unspecified Status: Acute Assessment and Plan: Temp to 102 with on admission. CXR clear. UA clear. Influenza negative. BCx NGTD. COVID negative now. No clear source for fever. CRP 23 but WBC normal. Low plt to 119 but doubt TTP given the improvement and 126 K day of discharge. Remained afebrile for some 36 hours assumed probable viral infection. Up in about feeling well and able to be discharged home. (2) Acute left-sided weakness: Code(s): R53.1 - Weakness Status: Acute Assessment and Plan: Patient has hx of CVA with residual left sided weakness. Patient had an acute worsening of the left sided weakness but this resolved. CT brain showing no acute findings. Suspect the weakness is just worsening of his chronic weakness related to the fever. He has a MRI scheduled for later March.8 Patient up walking to the . PT/OT but seems to have recovered well. Contineu to monitor. (3) Vertigo: Onset Date: ~01/2020 Code(s): R42 - Dizziness and giddiness Status: Acute Assessment and Plan: The patient is being worked up for this. Patient stated he has been having syncopal episodes and seizures and is due to have a MRI next month at [facility] that is Pacemaker friendly. Defer to outpatient for further. Neuro consulted and no changes made. Suggest follow-up with urology in [place] for MRI (4) Congestive heart failure: Code(s): I50.9 - Heart failure, unspecified Status: Chronic Assessment and Plan: BP soft on admission so Coreg, bumex and rampipril on hold. Will monitor for today. Add back meds as BP tolerates. BP better; cardiology resumed Coreg at low dose and held nitrate and JEROME-inhibitor and diuretic (5) Elevated troponin: Code(s): R79.89 - Other specified abnormal findings of blood chemistry Status: Acute Assessment and Plan: Trop slightly elevated to 0.045 but normal on repeat. No complaints of CP. Suspect this is related to the the [place]. EKG showing LBBB but seen last admission. Continue to monitor. Cardiology consulted and they felt the same (6) ARF (acute renal failure): Code(s): N17.9 - Acute kidney failure, unspecified Status: Acute Assessment and Plan: Cr 2.3 on admission but improved with IV fluids. Renal ultrasound no obstruction or abnormalities. Creatinine 1.1 day of discharge (7) Hyperlipidemia: Code(s): E78.5 - Hyperlipidemia, unspecified Status: Chronic Assessment and Plan: LFTs okay. Continue with Crestor. (8) Type 1 diabetes mellitus on insulin therapy: Code(s): E10.9 - Type 1 diabetes mellitus without complications Status: Chronic Assessment and Plan: A1c 13.8 in August but he states his last one 8.6. Glucose reviewed on 03/03/20. Glucose running in the 200's. . resuming insulin pump on discharge (9) Diabetic neuropathy associated with diabetes mellitus due to underlying condition: Code(s): E08.40 - Diabetes mellitus due to underlying condition with diabetic neuropathy, unspecified Status: Chronic Assessment and Plan: Stable. Gabapentin resumed. (10) Benign essential hypertension: Code(s): I10 - Essential (primary) hypertension Status: Acute Assessment and Plan: BP reviewed on 03/03/20. Blood pressure meds remain on hold. Contineu to monitor. Resumed Coreg on discharge but continue to hold diuretic nitrate and Jerome (11) CAD (coronary artery disease): Code(s): I25.10 - Atherosclerotic heart disease of [place] coronary artery without angina pectoris Status: Chronic Assessment and Plan: Isosorbide on hold. Continue with aspirin and Plavix. At discharge DS: Summary H
[2020-03-05 04:24] LABS: Osmolality, Urine 539 mOsm/kg (50-1200)
[2020-03-05 12:48] LABS: Myoglobin, Urine <27 mcg/L (<28)
[2020-03-05 17:22] LABS: Calculated Total (E+NE) 20 mcg/g cr (9-74); Creatinine, Urine 90 mg/dL (20-320); Dopamine, Urine 58 mcg/g cr (40-390); Epinephrine, Urine 4 mcg/g cr (2-16); Norepinephrine, Urine 16 mcg/g cr (7-65)
== END 2020-03-03 16:40 | disposition home or self-care (01) | DRG 864 ==
LOC: ANHED 07:17 → ANHICU 03-02 01:58 → ANHIMU 03-03 14:10 → ANHICU 03-05 14:35 → ANHIMU 03-05 14:35
PROVIDERS: Internal Medicine Cardiovascular Disease; Nurse Practitioner; Admitting Provider Family Medicine; Emergency Provider Emergency Medicine; PCP Family Medicine; Visit Provider Internal Medicine
DX: R50.9 Fever, unspecified (principal); N17.9 Acute kidney failure, unspecified; I13.0 Hypertensive heart and chronic kidney disease with heart failure and stage 1 through stage 4 chronic kidney disease, or unspecified chronic kidney disease; I50.9 Heart failure, unspecified; E10.40 Type 1 diabetes mellitus with diabetic neuropathy, unspecified; E10.319 Type 1 diabetes mellitus with unspecified diabetic retinopathy without macular edema; D69.6 Thrombocytopenia, unspecified; E10.22 Type 1 diabetes mellitus with diabetic chronic kidney disease; N18.3 Chronic kidney disease, stage 3 (moderate); Z20.828 Contact with and (suspected) exposure to other viral communicable diseases; R42 Dizziness and giddiness; I95.1 Orthostatic hypotension; R53.1 Weakness; R79.89 Other specified abnormal findings of blood chemistry; E78.5 Hyperlipidemia, unspecified; I25.10 Atherosclerotic heart disease of native coronary artery without angina pectoris; I44.7 Left bundle-branch block, unspecified; Z96.661 Presence of right artificial ankle joint; G47.33 Obstructive sleep apnea (adult) (pediatric); Z79.4 Long term (current) use of insulin; Z96.41 Presence of insulin pump (external) (internal); Z79.82 Long term (current) use of aspirin; Z79.899 Other long term (current) drug therapy; Z86.14 Personal history of Methicillin resistant Staphylococcus aureus infection; Z86.73 Personal history of transient ischemic attack (TIA), and cerebral infarction without residual deficits; Z95.0 Presence of cardiac pacemaker; Z95.1 Presence of aortocoronary bypass graft; Z95.5 Presence of coronary angioplasty implant and graft
CPT/HCPCS: 36415; 70450; 71046; 76775; 80053; 80307; 81001; 81050; 82384; 82570; 83605; 83615; 83735; 83874; 83935; 84105; 84133; 84156; 84300; 84443; 84484; 85025; 85610; 85730; 86140; 87040; 87635; 87804; 93005; 96360; 97110; 97116; 97161; 97165; 99285; A9270; C9803; J1644; J1815; J7030; U0003

== ENCOUNTER 2020-03-18 11:00 | Outpatient (RCR) | payer OTHER, MEDICARE, SELFPAY ==
--- NOTE | 2020-03-09 12:00 | PTOPEVAL ---
INITIAL PHYSICAL THERAPY EVALUATION and PLAN OF CARE Thank you for referring Froylan Vázquez to [facility]. Froylan will be seen 2x/wk x 2 wks, then 1x/wk x 3 wks. Please review, sign, date and return this plan of care STEVIE. I agree with and certify that the following plan of care is medically necessary. Referring Physician Date Admitting Provider: Attending Provider: Sergo Roldan DO Referring Provider: *PT Outpatient Evaluation Start: 03/09/20 10:09 Freq: Status: Active Protocol: Document 03/09/20 10:00 JONAH (Rec: 03/09/20 11:32 JONAH [id number]) Therapy Assessment Status Assessment Status Assessment Status Evaluation Outpatient Past Medical History Past Medical History Source of Past Medical History Patient Neurological History Hx Cerebrovascular Accident (CVA) Yes: 2007 - mild L sided weakness Hx Seizures Yes Hx Other Neurological Disorders Yes: neuropathy in both lower legs and feet Cardiovascular History Hx Cardiac Catheterization Yes Hx Congenital Heart Disease Yes Hx Coronary Artery Bypass Graft Yes: 2003 Hx Coronary Stent Yes: 3 stents Hx Hypertension Yes: meds Hx Myocardial Infarction Yes: 2003 Hx Pacemaker Yes Respiratory History Hx Respiratory Disorders No Significant History Gastrointestinal History Hx Cholecystectomy Yes: 2008 Genitourinary History Hx Genitourinary Disorders No Significant History Musculoskeletal History Hx Back Pain Yes: L hip and back-pain injections, bulging discs- injections Hx Orthopedic Surgery Yes: bilateral knee arthroscopy; L knee continues ache Hx Other Musculoskeletal Disorders Yes: R little toe surgery; Endocrine History Hx Diabetes Yes HEENT History Hx Cataracts Yes: bilateral removal Integumentary History Hx Skin Disorders No Significant History Reproductive History Hx Reproductive Disorders No Significant History Psychosocial History Hx Psychiatric Disorders No Significant History Pain History History of Any Previous or Ongoing No Significant History Instance of Pain Anesthesia History Hx Anesthesia Reactions No Significant History Evaluation Information Problem Diagnosis dizziness and giddiness Onset Sep 2019/October 2019 Subjective Information Began to feel dizziness, Query Text:As Reported By Patient/ instability Since that time Family has gotten insulin pump, cardiac meds regulated
--- NOTE | 2020-03-23 08:05 | PCPTNOTE ---
Froylan called to cancel 03/23 and 03/25 appointments due to blood pressure issues.
--- NOTE | 2020-03-29 16:06 | PCPTNOTE ---
Froylan called to cancel 03/30/20 and 04/06/20 appointments due to blood pressure issues. Keeping in re-eval appt. at this time.
--- NOTE | 2020-04-13 10:56 | PCPTNOTE ---
Today's re-eval appointment was cancelled. Froylan has not been seen since 03/18/20 due to blood pressure issues. Will d/c from PT at this time.
--- NOTE | 2020-04-13 10:57 | PCPTNOTE ---
PHYSICAL THERAPY DISCHARGE SUMMARY Admitting Provider: Attending Provider: Sergo Roldan DO Patient:Froylan Vázquez Date of :1955 Patient has not returned for any further treatments since 03/18/2020, therefore he will be discharged at this time. Patient?s initial visit was on 03/09/2020 10:00 and he had a total of 4 visits. Froylan had to cancel multiple appointments due to blood pressure issues. The goals have been partially met. Thank you for referring this patient to [facility]. Please review, sign, date and return this discharge summary STEVIE. I have been updated about the patient's current status and I agree with discharge from the above service at this time. Referring Physician Date
== END 2020-04-20 13:36 | disposition home or self-care (01) ==
LOC: ANHPT 11:00
PROVIDERS: PCP Family Medicine; Visit Provider Family Medicine
DX: R42 Dizziness and giddiness (principal)
CPT/HCPCS: 97110; 97116; 97162

== ENCOUNTER 2020-05-12 17:18 | Outpatient (CLI) | payer OTHER, MEDICARE, SELFPAY ==
--- NOTE | ~2020-05-12 | US_ITS ---
EXAMINATION: US venous doppler UE EXAM DATE: 05/12/2020 18:13 INDICATION: Left arm swelling. TECHNIQUE: Multiple grayscale, color flow, Doppler sonographic images of the left upper extremity vei ns obtained by technologist. Compression was performed where able. There is no prior study for steve adames. FINDINGS: Left upper extremity: Jugular vein: ------------> Normal. Subclavian vein: --------> Normal. Axillary vein:------------> Normal. Brachial vein:-----------> Normal. Basilic vein: ------------> Normal. Cephalic vein: ----------> Normal. Radial vein: ------------> Normal. Ulnar vein: > Normal. IMPRESSION: No deep venous thrombosis of the left upper extremity. Reviewed, dictated and finalized at location A.
== END 2020-05-12 17:19 | disposition home or self-care (01) ==
PROVIDERS: PCP Family Medicine
DX: M79.89 Other specified soft tissue disorders (principal)
CPT/HCPCS: 93971

== ENCOUNTER 2020-06-30 09:33 | Outpatient (RCR) | payer OTHER, MEDICARE, SELFPAY ==
[2020-05-26 13:39] LABS: Albumin Level 3.3 g/dL (3.5-5.1); Anion Gap 7 mmol/L (8-16); Blood Urea Nitrogen 51 mg/dL (9-20); Calcium 8.4 mg/dL (8.4-10.2); Carbon Dioxide 29 mmol/L (22-30); Chloride 101 mmol/L (98-107); Estimated Glomerular Filt Rate 26; Glucose 222 mg/dL (75-110); Phosphorus 4.7 mg/dL (2.5-4.5); Potassium 5.3 mmol/L (3.4-5.0); Sodium 137 mmol/L (137-145)
[2020-06-03 18:19] LABS: Albumin Level 3.6 g/dL (3.5-5.1); Anion Gap 9 mmol/L (8-16); Blood Urea Nitrogen 54 mg/dL (9-20); Calcium 8.5 mg/dL (8.4-10.2); Carbon Dioxide 27 mmol/L (22-30); Chloride 100 mmol/L (98-107); Estimated Glomerular Filt Rate 22; Glucose 211 mg/dL (75-110); Phosphorus 4.1 mg/dL (2.5-4.5); Potassium 5.1 mmol/L (3.4-5.0); Sodium 136 mmol/L (137-145)
[2020-06-09 12:17] LABS: Albumin Level 3.6 g/dL (3.5-5.1); Anion Gap 8 mmol/L (8-16); Blood Urea Nitrogen 60 mg/dL (9-20); Calcium 8.5 mg/dL (8.4-10.2); Carbon Dioxide 28 mmol/L (22-30); Chloride 101 mmol/L (98-107); Estimated Glomerular Filt Rate 21; Glucose 235 mg/dL (75-110); Phosphorus 4.1 mg/dL (2.5-4.5); Sodium 137 mmol/L (137-145)
[2020-06-23 10:51] LABS: Albumin Level 4.1 g/dL (3.5-5.1); Anion Gap 9 mmol/L (8-16); Blood Urea Nitrogen 93 mg/dL (9-20); Carbon Dioxide 30 mmol/L (22-30); Chloride 95 mmol/L (98-107); Estimated Glomerular Filt Rate 22; Glucose 316 mg/dL (75-110); Potassium 5.2 mmol/L (3.4-5.0); Sodium 134 mmol/L (137-145)
[2020-06-30 10:38] LABS: Hematocrit 35.7 % (42.0-52.0); Immature Platelet Fraction Pct 3.5 % (0.9-11.2); Mean Corpuscular HGB Conc 30.8 g/dl (32-36); Mean Corpuscular Hemoglobin 25.5 pg (26-34); Mean Corpuscular Volume 82.8 fl (80-100); Mean Platelet Volume 11.5 fl (7.4-10.4); Platelet Count Result 162 k/mm3 (150-375); Red Blood Count 4.31 M/mm3 (4.6-6.20); Red Cell Distribution Width 16.9 % (11.5-14.5); White Blood Count 8.1 K/mm3 (4.5-10.0)
[2020-06-30 10:47] LABS: Albumin Level 3.9 g/dL (3.5-5.1); Anion Gap 8 mmol/L (8-16); Blood Urea Nitrogen 87 mg/dL (9-20); Calcium 9.3 mg/dL (8.4-10.2); Carbon Dioxide 27 mmol/L (22-30); Chloride 101 mmol/L (98-107); Estimated Glomerular Filt Rate 23; Glucose 268 mg/dL (75-110); Phosphorus 4.7 mg/dL (2.5-4.5); Potassium 4.5 mmol/L (3.4-5.0); Sodium 136 mmol/L (137-145)
== END 2020-08-24 23:59 | disposition home or self-care (01) ==
LOC: HOME HLTH 09:33
PROVIDERS: PCP Family Medicine
DX: I50.22 Chronic systolic (congestive) heart failure (principal); I25.5 Ischemic cardiomyopathy; I25.118 Atherosclerotic heart disease of native coronary artery with other forms of angina pectoris; I44.1 Atrioventricular block, second degree; N18.4 Chronic kidney disease, stage 4 (severe); D63.1 Anemia in chronic kidney disease
CPT/HCPCS: 80069; 85027; 85055

== ENCOUNTER 2020-07-07 11:26 | Outpatient (RCR) | payer OTHER, MEDICARE, SELFPAY ==
[2020-07-07 12:20] LABS: Anion Gap 8 mmol/L (8-16); Blood Urea Nitrogen 74 mg/dL (9-20); Calcium 9.3 mg/dL (8.4-10.2); Carbon Dioxide 27 mmol/L (22-30); Chloride 107 mmol/L (98-107); Estimated Glomerular Filt Rate 27; Glucose 173 mg/dL (75-110); Sodium 142 mmol/L (137-145)
== END 2020-10-05 23:59 | disposition home or self-care (01) ==
LOC: HOME HLTH 11:26
PROVIDERS: PCP Family Medicine; Visit Provider Family Medicine
DX: N18.3 Chronic kidney disease, stage 3 (moderate) (principal); I13.0 Hypertensive heart and chronic kidney disease with heart failure and stage 1 through stage 4 chronic kidney disease, or unspecified chronic kidney disease; I25.118 Atherosclerotic heart disease of native coronary artery with other forms of angina pectoris; I44.1 Atrioventricular block, second degree; I44.7 Left bundle-branch block, unspecified
CPT/HCPCS: 80048

== ENCOUNTER 2020-07-31 17:41 | Emergency (ER) | payer MEDICARE, SELFPAY ==
--- NOTE | ~2020-07-31 | XR_ITS ---
EXAMINATION: XR shoulder RT min 2V EXAM DATE: 07/31/2020 18:16 INDICATION: Initial encounter following injury, with pain of the right shoulder. TECHNIQUE: The following right shoulder projections obtained: frontal projection with internal rotati on, frontal projection with external rotation, Grashey, and axillary (4+ views). There is no prior s tudy for comparison. FINDINGS: No evidence of right shoulder rotator cuff calcific tendinosis. There is mild glenohumer al and acromioclavicular joint primary osteoarthritis. There are no acute fractures or dislocations i dentified. There is no subcutaneous gas. The soft tissue is unremarkable. There are no radiopaque foreign bodies. IMPRESSION: Mild right shoulder osteoarthritis. Reviewed, dictated and finalized at location A.
[2020-07-31 17:57] VITALS: BP 112/65; PULSE 69; RESP 14; TEMP 36.6; O2SAT 100
--- NOTE | 2020-07-31 18:10 | ED.GENADULT ---
HPI - General Adult General Chief complaint: Extremity Injury, Upper Stated complaint: Fall Time Seen by Provider: 07/31/20 18:09 Source: patient and RN notes reviewed Mode of arrival: ambulatory Limitations: no limitations History of Present Illness HPI narrative: 65-year-old male presents with complaints of right shoulder pain caused by a fall on 07/30/20 at 20:30. Froylan says he was on the fourth step leading into his house and lost his balance fell backwards (3-4 feet) and pulled his on top of him to help break her fall, landed on right side causing right shoulder pain. Pain increased throughout the day. Flexeril this morning at 09:00 with relief. Denies numbness or tingling. Hurts with movement of shoulder. Pain radiates from shoulder to upper forearm. No loss of mobility. No swelling. Exacerbating factor is movement. Relieving factor is rest and Flexeril. The dominant hand is the RIGHT HAND. Denies hitting head, loss of consciousness, seizure activity, syncopal episodes, or dizziness. Remains active. The patient reports he have not been diagnosed with COVID-19. The patient reports he is not waiting for the results of a COVID-19 lab test. The patient reports he do not have fever, chills, weakness, or fatigue. The patient reports he do not have a new or worsening cough or shortness of breath. Denies chest pain. The patient reports he do not have any rhinorrhea, congestion, loss of taste, sore throat, nausea, vomiting, abdominal pain, and diarrhea. Tolerating po intake well. Denies recent traveling. Denies concerns for COVID-19 or exposures been home with limited outdoor exposure except for essential household needs, work, and return home. At this time, patient is not suspected of having COVID-19. Some parts of this dictation were generated by voice recognition software and may contain typographical and/or grammatical inaccuracies. Related Data Home Medications Medication Instructions Recorded Confirmed multivitamin 1 tablet PO DAILY 08/23/19 07/31/20 aspirin 81 mg tablet,delayed 81 mg PO DAILY 09/01/19 07/31/20 release rosuvastatin 40 mg tablet 40 mg PO QPM tablet 04/05/20 07/31/20 subcutaneous insulin pump #1 each 04/05/20 07/01/20 amiodarone 400 mg tablet 400 mg PO DAILY 06/21/20 07/31/20 calcitriol 0.25 mcg capsule 0.25 mcg PO DAILY 06/21/20 07/31/20 cholecalciferol (vitamin D3) 100 2,000 unit PO DAILY cap 06/21/20 07/31/20 mcg (4,000 unit) capsule spironolactone 25 mg tablet 25 mg PO DAILY 06/21/20 07/31/20 torsemide 20 mg tablet 20 mg PO BID tablet 06/29/20 07/31/20 Allergies Allergy/AdvReac Type Severity Reaction Status Date / Time vancomycin Allergy Mild Itching at Verified 07/31/20 17:46 IV site Review of Systems Review of Systems: Narrative: CONSTITUTIONAL: Denies fever, chills, sweats. EYES: Denies visual changes, redness, discharge. ENT: Denies rhinorrhea, congestion, sore throat, otalgia. CARDIOVASCULAR: Denies chest pain, palpitations, edema. RESPIRATORY: Denies dyspnea, wheezing, cough. GASTROINTESTINAL: Denies abdominal pain, nausea, vomiting, diarrhea. SKIN: Denies rash or itching. MUSCULOSKELETAL: Denies acute back pain or myalgia. Complains of RT shoulder and upper arm pain. NEUROLOGIC: Denies numbness or focal weakness. PSYCHIATRIC: Denies anxiety or depression. All other systems reviewed & are unremarkable except as noted in HPI and below. [facility] Past Medical History Medical History (Updated 07/31/20 @ 18:36 by BINDU Isaac) CAD (coronary artery disease) 5 vessel CABG April of 2004 RUIZ to LAD occluded LAD patent saphenous vein graft to diagonal occluded saphenous vein graft to circumflex and RCA. Three cardiac stents Congestive heart failure EF of 35% grade 1 diastolic dysfunction Diabetic retinopathy GERD (gastroesophageal reflux disease) History of MRSA infection History of stroke Hyperlipidemia Hypertension Obstructive sleep apnea Unable to
== END 2020-07-31 18:43 | disposition home or self-care (01) ==
PROVIDERS: Emergency Provider Nurse Practitioner Family; PCP Family Medicine
DX: S40.011A Contusion of right shoulder, initial encounter (principal); W10.9XXA Fall (on) (from) unspecified stairs and steps, initial encounter; M19.011 Primary osteoarthritis, right shoulder; Z95.5 Presence of coronary angioplasty implant and graft; I11.0 Hypertensive heart disease with heart failure; I50.9 Heart failure, unspecified; K21.9 Gastro-esophageal reflux disease without esophagitis; E78.5 Hyperlipidemia, unspecified; G47.33 Obstructive sleep apnea (adult) (pediatric); E11.319 Type 2 diabetes mellitus with unspecified diabetic retinopathy without macular edema; Z95.0 Presence of cardiac pacemaker
CPT/HCPCS: 73030; 99213; G0463

== ENCOUNTER 2020-08-17 10:02 | Emergency (ER) | payer MEDICARE, SELFPAY ==
--- NOTE | ~2020-08-17 | XR_ITS ---
EXAMINATION: XR foot RT min 3V DATE: 08/17/2020 11:07 INDICATION: Wound to fifth metatarsal right foot. TECHNIQUE: 4 views of right foot were obtained. COMPARISON: None. FINDINGS: Bone alignment is normal. There are erosions at head of fifth metatarsal. There is a well-c orticated erosion of lateral aspect of head of fifth proximal phalanx. There is mild osteoarthritis o f first metatarsophalangeal joint and some of the interphalangeal and midfoot joints. IMPRESSION: 1. Erosions of head of fifth metatarsal, consistent with osteomyelitis. 2. Well-corticated erosion of lateral aspect of head of fifth proximal phalanx, which may be chronic osteomyelitis. Reviewed, dictated and finalized at location B. KMOBILE OPERATOR
[2020-08-17 10:09] VITALS: BP 109/66; PULSE 87; RESP 18; TEMP 36.5; O2SAT 99
--- NOTE | 2020-08-17 10:30 | ED.LOWEXIN ---
HPI - Extremity Injury (Lower) General Chief Complaint: Extremity Injury, Lower Stated Complaint: right foot wound Time Seen by Provider: 08/17/20 10:12 Source: patient Mode of arrival: ambulatory Limitations: no limitations History of Present Illness HPI Narrative: This is a 65-year-old male that presents the emergency department for right foot wound worsening over the last 4 days. Reports he has seen Dr. Golden for this wound for years. Reports over the last couple of days the wound has started to become painful. Reports yesterday he started to note drainage from the wound. Reports history of diabetes and peripheral neuropathy. Denies fever. Related Data Home Medications Medication Instructions Recorded Confirmed multivitamin 1 tablet PO DAILY 08/23/19 07/31/20 aspirin 81 mg tablet,delayed 81 mg PO DAILY 09/01/19 07/31/20 release rosuvastatin 40 mg tablet 40 mg PO QPM tablet 04/05/20 07/31/20 subcutaneous insulin pump #1 each 04/05/20 07/01/20 amiodarone 400 mg tablet 400 mg PO DAILY 06/21/20 07/31/20 calcitriol 0.25 mcg capsule 0.25 mcg PO DAILY 06/21/20 07/31/20 cholecalciferol (vitamin D3) 100 2,000 unit PO DAILY cap 06/21/20 07/31/20 mcg (4,000 unit) capsule spironolactone 25 mg tablet 25 mg PO DAILY 06/21/20 07/31/20 torsemide 20 mg tablet 20 mg PO BID tablet 06/29/20 07/31/20 Allergies Allergy/AdvReac Type Severity Reaction Status Date / Time vancomycin Allergy Mild Itching at Verified 08/17/20 10:12 IV site Review of Systems Review of Systems: Narrative: CONSTITUTIONAL: Denies fever SKIN: Reports wound All systems reviewed & are unremarkable except as noted in HPI and below PMFSH Past Medical History Medical History (Updated 08/17/20 @ 13:36 by Rocio Maya PA-C) CAD (coronary artery disease) 5 vessel CABG April of 2004 RUIZ to LAD occluded LAD patent saphenous vein graft to diagonal occluded saphenous vein graft to circumflex and RCA. Three cardiac stents Congestive heart failure EF of 35% grade 1 diastolic dysfunction Diabetic retinopathy GERD (gastroesophageal reflux disease) History of MRSA infection History of stroke Hyperlipidemia Hypertension Obstructive sleep apnea Unable to tolerate CPAP machine Pancreatitis Surgical History Surgical History H/O inguinal hernia repair On the right History of arthroplasty of right ankle ORIF History of arthroscopy of left knee History of arthroscopy of right knee History of cardiac catheterization History of carpal tunnel repair Bilateral History of cholecystectomy Laparoscopic History of coronary artery stent placement 3 stents History of repair of rotator cuff Bilateral History of right inguinal hernia repair Hx of CABG Five vessel Pacemaker Due to complete heart block Family History Family History Unknown Family history not obtainable due to adoption Social History Social History (Updated 07/31/20 @ 18:30 by BINDU Isaac) Social History: 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 He volunteers at the [employer]. No alcohol tobacco drug abuse. He desires to be a full code Smoking status: Never smoker Tobacco type: cigarettes Second hand tobacco smoke exposure: No Alcohol intake: current Drinks per week: 1 Substance use: never Additional occupation/education comments: Had to quit working in 2007 status post CVA Gender identity (if verbalized by the patient): Male Spiritual care concerns: No Agree to blood products: Yes Exam Narrative: Exam Narrative: GENERAL: Well-appearing, obese, and in no acute distress. HEAD: Normocephalic, atraumatic. EYES: EOMI. EXTREMITIES: Normal range of motion. 2cm callus lateral to the right fifth metatarsal with serosanguinous drainage, n
--- NOTE | 2020-08-17 10:48 | PC.NURSE ---
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 Sent to lab.
--- NOTE | 2020-08-17 11:00 | PC.NURSE ---
Report taken from GEMMA Manuel.
[2020-08-17 11:01] LABS: Basophils Absolute Auto 0.1 K/mm3 (0.0-0.1); Basophils Percent Auto 0.8 % (0.2-1.2); Eosinophils Absolute Auto 0.2 K/mm3 (0-0.3); Eosinophils Percent Auto 2.2 % (0-4.4); Hematocrit 37.8 % (42.0-52.0); Hemoglobin 11.6 g/dL (14.0-18.0); Immature Granulocyte Absolute 0.04 K/mm3 (0.00-0.031); Immature Granulocyte Percent A 0.5 % (0-0.5); Lymphocytes Absolute Auto 1.68 K/mm3 (0.9-3.2); Mean Corpuscular HGB Conc 30.7 g/dl (32-36); Mean Corpuscular Hemoglobin 25.6 pg (26-34); Mean Corpuscular Volume 83.3 fl (80-100); Mean Platelet Volume 10.9 fl (7.4-10.4); Monocytes Absolute Auto 0.7 K/mm3 (0.1-0.6); Monocytes Percent Auto 8.8 % (2.6-8.5); Neutrophils Percent Auto 65.7 % (45.5-73.1); Platelet Count Result 209 k/mm3 (150-375); Red Blood Count 4.54 M/mm3 (4.6-6.20); White Blood Count 7.6 K/mm3 (4.5-10.0)
[2020-08-17 11:45] LABS: Anion Gap 10 mmol/L (8-16); Blood Urea Nitrogen 72 mg/dL (9-20); CRP 1.2 mg/dL (<1.0); Calcium 9.2 mg/dL (8.4-10.2); Carbon Dioxide 29 mmol/L (22-30); Chloride 100 mmol/L (98-107); Estimated CRCL calculation 27 ml/min; Estimated Glomerular Filt Rate 20; Glucose 291 mg/dL (75-110); Potassium 4.7 mmol/L (3.4-5.0); Sodium 139 mmol/L (137-145)
[2020-08-17 12:24] LABS: Erythrocyte Sedimentation Rate 40 mm/hr (0-20)
[2020-08-17 12:41] VITALS: BP 111/72; PULSE 72; RESP 18; O2SAT 96
[2020-08-17 14:26] VITALS: BP 119/91; PULSE 74; RESP 16; O2SAT 98
== END 2020-08-17 14:26 | disposition home or self-care (01) ==
PROVIDERS: Physician Assistant; Emergency Provider Emergency Medicine; PCP Family Medicine
DX: E11.621 Type 2 diabetes mellitus with foot ulcer (principal); I25.10 Atherosclerotic heart disease of native coronary artery without angina pectoris; I11.0 Hypertensive heart disease with heart failure; I50.9 Heart failure, unspecified; K21.9 Gastro-esophageal reflux disease without esophagitis; E78.5 Hyperlipidemia, unspecified; G47.30 Sleep apnea, unspecified
CPT/HCPCS: 11042; 36415; 73630; 80048; 85025; 85652; 86140; 87040; 87070; 87075; 87076; 87205; 99283

== ENCOUNTER 2020-09-16 12:49 | Outpatient (RCR) | payer MEDICARE, SELFPAY ==
[2020-07-14 11:08] LABS: Hematocrit 38.5 % (42.0-52.0); Hemoglobin 11.9 g/dL (14.0-18.0); Mean Corpuscular HGB Conc 30.9 g/dl (32-36); Mean Corpuscular Volume 84.1 fl (80-100); Mean Platelet Volume 11.6 fl (7.4-10.4); Platelet Count Result 188 k/mm3 (150-375); Red Blood Count 4.58 M/mm3 (4.6-6.20); Red Cell Distribution Width 17.9 % (11.5-14.5); White Blood Count 7.8 K/mm3 (4.5-10.0)
[2020-07-14 11:12] LABS: Add Urine Microscopic? NO; Appearance Urine Clear (Clear); Bilirubin Urine Negative (Negative); Blood Urine Negative (Negative); Color Urine Yellow (Yellow); Glucose Urine UA Negative (Negative); Ketones Urine Negative (Negative); Leukocyte Esterase Ur Negative LEU/UL (Negative); Nitrate Urine Negative (Negative); Protein Urine Negative (Negative); Specific Grav Ur 1.011 (1.001-1.035); Urobilinogen Urine Negative mg/dL (<2.0)
[2020-07-14 11:22] LABS: Albumin Level 3.9 g/dL (3.5-5.1); Anion Gap 10 mmol/L (8-16); Blood Urea Nitrogen 72 mg/dL (9-20); Calcium 9.3 mg/dL (8.4-10.2); Carbon Dioxide 31 mmol/L (22-30); Chloride 97 mmol/L (98-107); Estimated Glomerular Filt Rate 22; Glucose 200 mg/dL (75-110); Phosphorus 4.8 mg/dL (2.5-4.5); Potassium 4.9 mmol/L (3.4-5.0); Sodium 138 mmol/L (137-145)
[2020-07-14 12:04] LABS: Vitamin D 25 Hydroxy 46.2 ng/mL
[2020-07-28 11:47] LABS: Hematocrit 39.2 % (42.0-52.0); Hemoglobin 11.9 g/dL (14.0-18.0); Mean Corpuscular HGB Conc 30.4 g/dl (32-36); Mean Corpuscular Hemoglobin 25.9 pg (26-34); Mean Corpuscular Volume 85.4 fl (80-100); Mean Platelet Volume 10.8 fl (7.4-10.4); Platelet Count Result 199 k/mm3 (150-375); Red Blood Count 4.59 M/mm3 (4.6-6.20); Red Cell Distribution Width 18.5 % (11.5-14.5); White Blood Count 7.7 K/mm3 (4.5-10.0)
[2020-07-28 11:57] LABS: Add Urine Microscopic? YES; Appearance Urine Clear (Clear); Bacteria Urine Trace /hpf; Bilirubin Urine Negative (Negative); Blood Urine Negative (Negative); Color Urine Yellow (Yellow); Glucose Urine UA Negative (Negative); Ketones Urine Negative (Negative); Leukocyte Esterase Ur Negative LEU/UL (Negative); Mucus Urine Rare /lpf; Nitrate Urine Negative (Negative); Protein Urine 2+ mg/dL (Negative); RBC Urine 0-2 /hpf (0-2); Specific Grav Ur 1.015 (1.001-1.035); WBC Urine 0-3 /hpf
[2020-07-28 12:21] LABS: Albumin Level 4.1 g/dL (3.5-5.1); Anion Gap 10 mmol/L (8-16); Blood Urea Nitrogen 60 mg/dL (9-20); Calcium 9.1 mg/dL (8.4-10.2); Carbon Dioxide 30 mmol/L (22-30); Chloride 102 mmol/L (98-107); Estimated Glomerular Filt Rate 24; Glucose 213 mg/dL (75-110); Phosphorus 4.7 mg/dL (2.5-4.5); Potassium 5.4 mmol/L (3.4-5.0); Sodium 142 mmol/L (137-145)
[2020-07-28 12:32] LABS: Parathyroid Intact 144.2 pg/mL (7.5-53.5)
[2020-07-28 12:35] LABS: Vitamin D 25 Hydroxy 52.2 ng/mL
[2020-08-11 16:35] LABS: Hematocrit 38.4 % (42.0-52.0); Hemoglobin 11.8 g/dL (14.0-18.0); Mean Corpuscular HGB Conc 30.7 g/dl (32-36); Mean Corpuscular Hemoglobin 25.5 pg (26-34); Mean Corpuscular Volume 82.9 fl (80-100); Mean Platelet Volume 10.3 fl (7.4-10.4); Platelet Count Result 199 k/mm3 (150-375); Red Blood Count 4.63 M/mm3 (4.6-6.20); Red Cell Distribution Width 18.7 % (11.5-14.5); White Blood Count 7.6 K/mm3 (4.5-10.0)
[2020-08-11 16:48] LABS: Albumin Level 4.1 g/dL (3.5-5.1); Anion Gap 10 mmol/L (8-16); Blood Urea Nitrogen 76 mg/dL (9-20); Calcium 9.4 mg/dL (8.4-10.2); Carbon Dioxide 31 mmol/L (22-30); Chloride 100 mmol/L (98-107); Estimated Glomerular Filt Rate 21; Glucose 98 mg/dL (75-110); Phosphorus 4.3 mg/dL (2.5-4.5); Potassium 5.2 mmol/L (3.4-5.0); Sodium 141 mmol/L (137-145)
[2020-08-20 12:23] LABS: Hematocrit 37.5 % (42.0-52.0); Hemoglobin 11.7 g/dL (14.0-18.0); Mean Corpuscular HGB Conc 31.2 g/dl (32-36); Mean Corpuscular Hemoglobin 25.9 pg (26-34); Mean Corpuscular Volume 83.1 fl (80-100); Mean Platelet Volume 10.3 fl (7.4-10.4); Platelet Count Result 228 k/mm3 (150-375); Red Blood Count 4.51 M/mm3 (4.6-6.20); Red Cell Distribution Width 18.6 % (11.5-14.5)
[2020-08-20 12:41] LABS: Albumin Level 4.2 g/dL (3.5-5.1); Anion Gap 9 mmol/L (8-16); Blood Urea Nitrogen 76 mg/dL (9-20); Calcium 9.5 mg/dL (8.4-10.2); Carbon Dioxide 32 mmol/L (22-30); Chloride 96 mmol/L (98-107); Estimated Glomerular Filt Rate 21; Glucose 341 mg/dL (75-110); Phosphorus 5.4 mg/dL (2.5-4.5); Potassium 5.2 mmol/L (3.4-5.0); Sodium 137 mmol/L (137-145)
[2020-08-26 12:05] LABS: Hematocrit 42.2 % (42.0-52.0); Hemoglobin 13.3 g/dL (14.0-18.0); Mean Corpuscular HGB Conc 31.5 g/dl (32-36); Mean Corpuscular Hemoglobin 26.1 pg (26-34); Mean Corpuscular Volume 82.7 fl (80-100); Mean Platelet Volume 10.3 fl (7.4-10.4); Platelet Count Result 235 k/mm3 (150-375); Red Cell Distribution Width 18.8 % (11.5-14.5); White Blood Count 8.6 K/mm3 (4.5-10.0)
[2020-08-28 11:09] LABS: Albumin Level 4.2 g/dL (3.5-5.1); Anion Gap 11 mmol/L (8-16); Blood Urea Nitrogen 108 mg/dL (9-20); Calcium 9.7 mg/dL (8.4-10.2); Carbon Dioxide 33 mmol/L (22-30); Chloride 93 mmol/L (98-107); Estimated Glomerular Filt Rate 17; Glucose 218 mg/dL (75-110); Phosphorus 5.8 mg/dL (2.5-4.5); Sodium 137 mmol/L (137-145)
[2020-09-07 13:45] LABS: Hematocrit 39.4 % (42.0-52.0); Hemoglobin 12.5 g/dL (14.0-18.0); Mean Corpuscular HGB Conc 31.7 g/dl (32-36); Mean Corpuscular Hemoglobin 26.4 pg (26-34); Mean Corpuscular Volume 83.1 fl (80-100); Mean Platelet Volume 10.8 fl (7.4-10.4); Platelet Count Result 202 k/mm3 (150-375); Red Blood Count 4.74 M/mm3 (4.6-6.20); Red Cell Distribution Width 18.2 % (11.5-14.5)
[2020-09-07 13:55] LABS: Albumin Level 4.1 g/dL (3.5-5.1); Anion Gap 9 mmol/L (8-16); Blood Urea Nitrogen 83 mg/dL (9-20); Calcium 9.4 mg/dL (8.4-10.2); Carbon Dioxide 32 mmol/L (22-30); Chloride 96 mmol/L (98-107); Estimated Glomerular Filt Rate 19; Glucose 254 mg/dL (75-110); Phosphorus 4.9 mg/dL (2.5-4.5); Potassium 4.9 mmol/L (3.4-5.0); Sodium 137 mmol/L (137-145)
[2020-09-16 13:43] LABS: Hematocrit 36.8 % (42.0-52.0); Hemoglobin 11.5 g/dL (14.0-18.0); Mean Corpuscular HGB Conc 31.3 g/dl (32-36); Mean Corpuscular Hemoglobin 26.3 pg (26-34); Mean Corpuscular Volume 84.2 fl (80-100); Mean Platelet Volume 10.7 fl (7.4-10.4); Platelet Count Result 203 k/mm3 (150-375); Red Blood Count 4.37 M/mm3 (4.6-6.20); Red Cell Distribution Width 17.8 % (11.5-14.5)
[2020-09-16 13:54] LABS: Add Urine Microscopic? NO; Appearance Urine Clear (Clear); Bilirubin Urine Negative (Negative); Blood Urine Negative (Negative); Color Urine Yellow (Yellow); Glucose Urine UA Negative (Negative); Hyaline Casts Urine 20-29 /lpf; Ketones Urine Negative (Negative); Leukocyte Esterase Ur Negative LEU/UL (NEGATIVE); Mucus Urine Rare /lpf; Nitrate Urine Negative (Negative); Protein Urine Negative (Negative); RBC Urine 0-2 /hpf (0-2); Squamous Epithelial Cell Urine Rare /hpf (Few); Urobilinogen Urine Negative mg/dL (<2.0); WBC Urine 0-3 /hpf (0-3)
[2020-09-16 13:57] LABS: Albumin Level 3.8 g/dL (3.5-5.1); Anion Gap 14 mmol/L (8-16); Blood Urea Nitrogen 65 mg/dL (9-20); Calcium 9.2 mg/dL (8.4-10.2); Carbon Dioxide 22 mmol/L (22-30); Chloride 98 mmol/L (98-107); Estimated Glomerular Filt Rate 21; Glucose 369 mg/dL (75-110); Phosphorus 5.3 mg/dL (2.5-4.5); Potassium 5.3 mmol/L (3.4-5.0); Sodium 134 mmol/L (137-145)
[2020-09-16 14:07] LABS: Parathyroid Intact 96.8 pg/mL (7.5-53.5)
[2020-09-16 14:28] LABS: Vitamin D 25 Hydroxy 54.5 ng/mL
== END 2020-10-12 23:59 | disposition home or self-care (01) ==
LOC: ANHLAB 12:49
PROVIDERS: PCP Family Medicine
DX: N18.4 Chronic kidney disease, stage 4 (severe) (principal); D63.1 Anemia in chronic kidney disease; I50.23 Acute on chronic systolic (congestive) heart failure; E11.22 Type 2 diabetes mellitus with diabetic chronic kidney disease
CPT/HCPCS: 36415; 80069; 81001; 81003; 82306; 83970; 85027; 87086

== ENCOUNTER 2020-09-25 01:57 | Outpatient (CLI) | payer MEDICARE, SELFPAY ==
[2020-09-25 18:59] LABS: SARS-CoV-2 RNA PCR Negative
== END 2020-09-25 01:58 | disposition home or self-care (01) ==
LOC: ANHCOVIDDT 01:58
PROVIDERS: PCP Family Medicine; Visit Provider Podiatrist Foot & Ankle Surgery
DX: Z01.818 Encounter for other preprocedural examination (principal); Z20.828 Contact with and (suspected) exposure to other viral communicable diseases
CPT/HCPCS: 87635; C9803; U0003

== ENCOUNTER 2020-09-27 14:24 | Outpatient (CLI) | payer MEDICARE, SELFPAY ==
[2020-09-27 15:04] LABS: INR 1.1; Prothrombin Time 14.9 Seconds (11.1-14.7)
[2020-09-27 15:05] LABS: Partial Thromboplastin Time 26.6 SECONDS (22.3-36.8)
== END 2020-09-27 14:25 | disposition home or self-care (01) ==
PROVIDERS: Anesthesiology; PCP Family Medicine; Visit Provider Podiatrist Foot & Ankle Surgery
DX: N28.9 Disorder of kidney and ureter, unspecified (principal); Z01.818 Encounter for other preprocedural examination
CPT/HCPCS: 36415; 85610; 85730

== ENCOUNTER 2020-09-29 00:57 | Day surgery (SDC) | payer MEDICARE, SELFPAY ==
[2020-09-23 15:13] VITALS: BMI 34.2
--- NOTE | ~2020-09-29 | XR_ITS ---
EXAMINATION: XR surgery orthopedic DATE: 09/29/2020 14:50 INDICATION: Chronic right foot ulcer. TECHNIQUE: 2 intraoperative fluoroscopic views of right foot were obtained. I was not present. Fluoro scopy exposure time was 13 seconds. COMPARISON: Right foot radiographs 08/17/2020 FINDINGS: There are changes of osteotomy of the right fifth metatarsal. IMPRESSION: 1. Osteotomy of right fifth metatarsal. Reviewed, dictated and finalized at location A. RAMP AGENT
--- NOTE | 2020-09-29 10:01 | WPDANESEPPF ---
Anes - Initial Pre Proc Eval Procedure: Operation Date: 09/29/20 13:30 Proposed Procedures p Fifth Metatarsal Osteotomy Right Foot - Mango Golden JR, MD Date/Time: 09/29/20 10:01 Surgeon: Mango Golden JR, MD Pre Op Diagnosis: Chronic Ulcer Right Foot Patient Data Age: 65 Gender: M Height: 1.78 m Weight: 108.18 kg Allergies Allergy/AdvReac Type Severity Reaction Status Date / Time vancomycin Allergy Mild Itching at Verified 09/29/20 10:45 IV site Home Medications Medication Instructions Recorded Confirmed Type multivitamin 1 tablet PO DAILY 08/23/19 09/29/20 History aspirin 81 mg tablet,delayed 81 mg PO DAILY 09/01/19 09/29/20 History release clopidogrel 75 mg tablet 75 mg PO DAILY #90 tablet 02/16/20 09/29/20 Rx carvedilol [Coreg] 3.125 mg PO Q12HR #60 tablet 03/03/20 09/29/20 Rx rosuvastatin 40 mg tablet 40 mg PO QPM tablet 04/05/20 09/29/20 History subcutaneous insulin pump #1 each 04/05/20 07/01/20 History amiodarone 400 mg tablet 200 mg PO DAILY 06/21/20 09/29/20 History calcitriol 0.25 mcg capsule 0.25 mcg PO DAILY 06/21/20 09/29/20 History cholecalciferol (vitamin D3) 100 2,000 unit PO DAILY cap 06/21/20 09/29/20 History mcg (4,000 unit) capsule gabapentin 300 mg capsule 300 mg PO BID #270 cap 06/21/20 09/29/20 Rx spironolactone 25 mg tablet 25 mg PO DAILY 06/21/20 09/29/20 History torsemide 20 mg tablet 20 mg PO QAM tablet 06/29/20 09/29/20 History pantoprazole 40 mg tablet,delayed 40 mg PO QAM #90 tablet 08/16/20 09/29/20 Rx release clindamycin HCl 300 mg PO BID 09/23/20 09/29/20 History hydralazine 10 mg PO HS 09/23/20 09/29/20 History Patient hx anesthesia problems: none Family hx anesthesia problems: none PMFSH Past Medical History Medical History (Updated 09/27/20 @ 13:53 by Rm Sifuentes MD) CAD (coronary artery disease) 5 vessel CABG April of 2004 RUIZ to LAD occluded LAD patent saphenous vein graft to diagonal occluded saphenous vein graft to circumflex and RCA. Three cardiac stents Congestive heart failure EF of 35% grade 1 diastolic dysfunction Diabetic retinopathy GERD (gastroesophageal reflux disease) History of MRSA infection History of stroke Hyperlipidemia Hypertension Obstructive sleep apnea Unable to tolerate CPAP machine Pancreatitis Surgical History Surgical History H/O inguinal hernia repair On the right History of arthroplasty of right ankle ORIF History of arthroscopy of left knee History of arthroscopy of right knee History of cardiac catheterization History of carpal tunnel repair Bilateral History of cholecystectomy Laparoscopic History of coronary artery stent placement 3 stents History of repair of rotator cuff Bilateral History of right inguinal hernia repair Hx of CABG Five vessel Pacemaker Due to complete heart block Family History Family History Unknown Family history not obtainable due to adoption Social History Social History (Updated 07/31/20 @ 18:30 by BINDU Isaac) Social History: 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 No alcohol tobacco drug abuse. He desires to be a full code Smoking status: Never smoker Tobacco type: cigarettes Second hand tobacco smoke exposure: No Alcohol intake: current Drinks per week: 1 Substance use: never Living arrangements: with family Additional occupation/education comments: Had to quit working in 2007 status post CVA Gender identity (if verbalized by the patient): Male Spiritual care concerns: No Agree to blood products: Yes Anes - Eval Final PreProcedure Day of Procedure 09/29/20 10:01 Patient weight: obese Heart: regular rate and rhythm Lungs: clear to auscultation and normal
[2020-09-29 10:25] VITALS: BP 111/63; PULSE 77; RESP 18; TEMP 36.5; O2SAT 100
[2020-09-29 10:46] LABS: Glucose Point of Care 140 (65-105)
--- NOTE | 2020-09-29 11:44 | WPDHPUPDATE1 ---
History and Physical Update Update Date/Time: 09/29/20 11:44 History and Physical has been reviewed, including an updated exam of the patient. There are NO changes in the patient's condition. Risks, benefits, and alternatives have been discussed and questions answered. Patient agrees to proceed with procedure.
[2020-09-29] MEDS: LACTATED RINGERS 1,000 ML 30 ML IV CONT (12:00)
--- NOTE | 2020-09-29 13:25 | SUR.PREOP ---
Assisted up to bathroom to void.
[2020-09-29] MEDS: ceFAZolin 2 GM/D5W 50 ML 2 GM/50 ML BAG IVPB (13:36)
[2020-09-29] MEDS: BUPIVACAINE HCL 0.5% PF 30 ML VIAL INFILTRATE (13:43)
--- NOTE | 2020-09-29 14:30 | SUR.OPER ---
MAGNET ON PACEMAKER PER ANESTHESIA FOR PROCEDURE
--- NOTE | 2020-09-29 14:31 | PM.OP ---
Procedure Note - Brief Procedure Note - Brief Date of procedure: 09/29/20 Pre-op diagnosis: Chronic Ulcer Right Foot Post-op diagnosis: same Procedure performed: Bone biopsy distal 5th metatarsal right foot Proximal 5th metatarsal elevational osteotomy right foot Anesthesia: MAC and local Surgeon: Mango Golden JR, DPM Estimated blood loss (mL): 5 Complications: No immediate complications Condition: stable Disposition: same day
[2020-09-29 14:41] VITALS: BP 96/61; PULSE 70; RESP 13; O2SAT 99
[2020-09-29 14:50] LABS: Glucose Point of Care 129 (65-105)
[2020-09-29 15:10] VITALS: BP 95/63; PULSE 70; RESP 13; O2SAT 99
[2020-09-29 15:40] VITALS: BP 96/54; PULSE 70; RESP 15; O2SAT 99
--- NOTE | 2020-09-29 15:57 | SUR.PHASEII ---
POST-OP SHOE ORDERED.
[2020-09-29 16:10] VITALS: BP 91/56; PULSE 70; RESP 16
--- NOTE | 2020-09-29 18:09 | PM.PROC ---
Procedure Note - Detailed Date of procedure: 09/29/20 Pre-op diagnosis: Chronic Ulcer Right Foot Post-op diagnosis: same Procedure performed: 1. Bone biopsy of distal fifth metatarsal right foot 2. Fifth metatarsal elevational osteotomy right foot Anesthesia: MAC and local Surgeon: Mango Golden JR, DPM Estimated blood loss (mL): 5 Drains: No Packing: No Pathology: yes (Distal fifth metatarsal sent for gross and histopathology. Distal biopsy of 5th metatrsal sent for aerobic and aerobic culture and sensitivity) Complications: No immediate complications Condition: stable Disposition: same day Findings: Under mild sedation, the patient was brought to the operating room, placed on the operating table in the supine position. A pneumatic ankle tourniquet was placed about the patient's right ankle. Following MAC anesthesia, I performed a lateral ankle block with 20cc of 1:1 mix of 2% Lidocain plain and 0.5% Marcaine plain. The foot was then scrubbed, prepped, and draped in the usual aseptic manner. An Esmarch bandage was then used to examine the patient's right foot and pneumatic ankle tourniquet was then inflated. Surgery began in the following manner. Attention was directed to the dorsal aspect of the 5th metatarsal of the right foot where a 4 cm incision was made just lateral to the extensor tendon to the right 5th digit. The incision was continued deep down through the subcu tissues using sharp and blunt dissection. All bleeders were cauterized as necessary. A full-length periosteal incision was made overlying the fifth metatarsal distally extending to the base of the 5th metatarsal. Next, a sagittal bone saw was used to make an osteotomy starting along the base of the 5th metarsal identified with fluoroscopy. Immediately the distal plantar 5th metatarsal pressure was reduced in the area of the ulceration. I did inspect the previously resected 5th metatarsal. There was no necrosis nor signs of infection present. The plantar wound was not probing to bone. I did resect a few millimeters of the distal 5th metatarsal and sent it for aerobic and anaerobic culture and sensitivity and also histopathology to asses for osteomyeltis. The wound site was then flushed with copious amounts of sterile saline. Next, the periosteum and capsular structures overlying the 5th metatarsal was re reapproximated with 3-0 PDS. Next, subcutaneous structures were reapproximated and coapted utilizing 4-0 Vicryl. Next, the skin was reapproximated and coapted utilizing 4-0 Monocryl in running subcuticular suture fashion technique. Upon completion of the procedure, the incision was dressed with Steri-Strips, Adaptic, 4 x 4's, Kerlix, and Coban. The pneumatic ankle tourniquet was then deflated and a prompt hyperemic response noted to all digits of the right foot. Posterior splint was then applied. The patient did very well with the procedure and the anesthesia. She was transferred to the recovery room with vital signs stable and vascular status intact to all toes of the right foot. Following a period of postoperative monitoring, the patient will be discharged home on the following written and oral postoperative instructions: 1. Keep the dressing clean, dry, and intact. Use a cast protector bag with showers. 2. The patient to be protected weightbearing with a surgical shoe . 3. The patient should elevate the right foot when at rest. 4. The patient to contact Dr. Golden for all postop care and if any problems arise. 5. The patient can take Tylenol extra strength for pain.
== END 2020-09-29 16:35 | disposition home or self-care (01) ==
PROVIDERS: PCP Family Medicine; Visit Provider Podiatrist Foot & Ankle Surgery
PROC: (CPT 28750; principal; 2020-09-29 13:30)
DX: E11.621 Type 2 diabetes mellitus with foot ulcer (principal); L97.519 Non-pressure chronic ulcer of other part of right foot with unspecified severity; I25.10 Atherosclerotic heart disease of native coronary artery without angina pectoris; I11.0 Hypertensive heart disease with heart failure; I50.9 Heart failure, unspecified; E11.319 Type 2 diabetes mellitus with unspecified diabetic retinopathy without macular edema; E78.5 Hyperlipidemia, unspecified; G47.33 Obstructive sleep apnea (adult) (pediatric); Z86.14 Personal history of Methicillin resistant Staphylococcus aureus infection; Z95.1 Presence of aortocoronary bypass graft; Z95.5 Presence of coronary angioplasty implant and graft; K21.9 Gastro-esophageal reflux disease without esophagitis; Z79.4 Long term (current) use of insulin; Z79.82 Long term (current) use of aspirin; E66.9 Obesity, unspecified; Z68.33 Body mass index [BMI] 33.0-33.9, adult
CPT/HCPCS: 28308; 87070; 87075; 87205; 88304; 88309; 88311; C9290; J0690; J2370; J2704; J3010; J7120

== ENCOUNTER 2020-11-04 07:16 | Outpatient (RCR) | payer MEDICARE, SELFPAY ==
[2020-10-20 10:00] VITALS: BMI 33.0
== END 2020-11-22 12:41 | disposition home or self-care (01) ==
LOC: ANHWOC 07:16
PROVIDERS: PCP Family Medicine; Visit Provider Podiatrist Foot & Ankle Surgery
DX: E11.621 Type 2 diabetes mellitus with foot ulcer (principal); L97.429 Non-pressure chronic ulcer of left heel and midfoot with unspecified severity
CPT/HCPCS: 29445; 99212; A9270; G0463

== ENCOUNTER 2020-12-17 09:20 | Outpatient (CLI) | payer MEDICARE, SELFPAY ==
[2020-12-17 18:50] LABS: Add Urine Microscopic? YES; Appearance Urine Clear (Clear); Bilirubin Urine Negative (Negative); Blood Urine Negative (Negative); Color Urine Yellow (Yellow); Glucose Urine UA Negative (Negative); Hyaline Casts Urine 20-29 /lpf; Ketones Urine Negative (Negative); Leukocyte Esterase Ur Negative LEU/UL (Negative); Mucus Urine Rare /lpf; Nitrate Urine Negative (Negative); Protein Urine 2+ mg/dL (Negative); RBC Urine 0-2 /hpf (0-2); Specific Grav Ur 1.019 (1.001-1.035); Squamous Epithelial Cell Urine Rare /hpf (Few); Urobilinogen Urine Negative mg/dL (<2.0)
[2020-12-17 19:12] LABS: Creatinine Urine 210.3 mg/dL; Total Protein Urine Random 33 mg/dL; Ur Ttl Prot Creatinine Ratio 0.16 mg/mg (0-0.20)
== END 2020-12-17 09:21 | disposition home or self-care (01) ==
PROVIDERS: PCP Family Medicine
DX: N18.4 Chronic kidney disease, stage 4 (severe) (principal); E11.22 Type 2 diabetes mellitus with diabetic chronic kidney disease; D63.1 Anemia in chronic kidney disease; E87.5 Hyperkalemia; I50.22 Chronic systolic (congestive) heart failure
CPT/HCPCS: 81001; 82570; 84156

== ENCOUNTER 2020-12-24 09:49 | Outpatient (RCR) | payer MEDICARE, SELFPAY ==
[2020-10-19 10:01] LABS: Hematocrit 40.4 % (42.0-52.0); Hemoglobin 12.9 g/dL (14.0-18.0); Mean Corpuscular HGB Conc 31.9 g/dl (32-36); Mean Corpuscular Hemoglobin 26.7 pg (26-34); Mean Corpuscular Volume 83.5 fl (80-100); Mean Platelet Volume 10.9 fl (7.4-10.4); Platelet Count Result 235 k/mm3 (150-375); Red Blood Count 4.84 M/mm3 (4.6-6.20); Red Cell Distribution Width 17.2 % (11.5-14.5); White Blood Count 9.3 K/mm3 (4.5-10.0)
[2020-10-19 10:14] LABS: Albumin Level 4.2 g/dL (3.5-5.1); Anion Gap 5 mmol/L (8-16); Blood Urea Nitrogen 82 mg/dL (9-20); Calcium 9.3 mg/dL (8.4-10.2); Carbon Dioxide 32 mmol/L (22-30); Chloride 99 mmol/L (98-107); Estimated Glomerular Filt Rate 22; Glucose 211 mg/dL (75-110); Phosphorus 4.8 mg/dL (2.5-4.5); Potassium 5.6 mmol/L (3.4-5.0); Sodium 136 mmol/L (137-145)
[2020-11-10 11:42] LABS: Hematocrit 43.8 % (42.0-52.0); Hemoglobin 13.8 g/dL (14.0-18.0); Mean Corpuscular HGB Conc 31.5 g/dl (32-36); Mean Corpuscular Hemoglobin 27.6 pg (26-34); Mean Corpuscular Volume 87.6 fl (80-100); Platelet Count Result 184 k/mm3 (150-375); White Blood Count 8.7 K/mm3 (4.5-10.0)
[2020-11-10 11:54] LABS: Albumin Level 3.9 g/dL (3.5-5.1); Anion Gap 5 mmol/L (8-16); Blood Urea Nitrogen 60 mg/dL (9-20); Calcium 9.2 mg/dL (8.4-10.2); Carbon Dioxide 31 mmol/L (22-30); Chloride 100 mmol/L (98-107); Estimated Glomerular Filt Rate 18; Glucose 192 mg/dL (75-110); Phosphorus 4.5 mg/dL (2.5-4.5); Potassium 5.6 mmol/L (3.4-5.0); Sodium 136 mmol/L (137-145)
[2020-11-10 12:51] LABS: Vitamin D 25 Hydroxy 50.1 ng/mL
[2020-12-24 11:15] LABS: Hematocrit 38.6 % (42.0-52.0); Hemoglobin 12.3 g/dL (14.0-18.0); Mean Corpuscular HGB Conc 31.9 g/dl (32-36); Mean Corpuscular Hemoglobin 28.5 pg (26-34); Mean Corpuscular Volume 89.4 fl (80-100); Mean Platelet Volume 10.2 fl (7.4-10.4); Platelet Count Result 241 k/mm3 (150-375); Red Blood Count 4.32 M/mm3 (4.6-6.20); Red Cell Distribution Width 17.4 % (11.5-14.5)
[2020-12-24 11:24] LABS: Add Urine Microscopic? YES; Appearance Urine Clear (Clear); Bilirubin Urine Negative (Negative); Blood Urine Negative (Negative); Color Urine Yellow (Yellow); Glucose Urine UA 1+ mg/dL (Negative); Hyaline Casts Urine 30-49 /lpf; Ketones Urine Negative (Negative); Leukocyte Esterase Ur Negative LEU/UL (Negative); Mucus Urine Rare /lpf; Nitrate Urine Negative (Negative); Protein Urine 1+ mg/dL (Negative); Specific Grav Ur 1.014 (1.001-1.035); Squamous Epithelial Cell Urine Rare /hpf (Few); Urobilinogen Urine Negative mg/dL (<2.0); WBC Urine 0-3 /hpf
[2020-12-24 11:31] LABS: Creatinine Urine 105.2 mg/dL; Total Protein Urine Random 15 mg/dL; Ur Ttl Prot Creatinine Ratio 0.14 mg/mg (0-0.20)
[2020-12-24 11:31] LABS: Parathyroid Intact 49.6 pg/mL (7.5-53.5)
[2020-12-24 12:33] LABS: Albumin Level 3.8 g/dL (3.5-5.1); Anion Gap 6 mmol/L (8-16); Blood Urea Nitrogen 64 mg/dL (9-20); Calcium 9.3 mg/dL (8.4-10.2); Carbon Dioxide 30 mmol/L (22-30); Chloride 100 mmol/L (98-107); Estimated Glomerular Filt Rate 20; Glucose 357 mg/dL (75-110); Phosphorus 4.6 mg/dL (2.5-4.5); Potassium 5.9 mmol/L (3.4-5.0); Sodium 136 mmol/L (137-145)
== END 2021-01-17 23:59 | disposition home or self-care (01) ==
LOC: ANHLAB 09:49
PROVIDERS: PCP Family Medicine
DX: N18.4 Chronic kidney disease, stage 4 (severe) (principal); D63.1 Anemia in chronic kidney disease
CPT/HCPCS: 36415; 80069; 81001; 82306; 82570; 83970; 84156; 85027

== ENCOUNTER 2020-12-27 06:41 | Outpatient (NON) | payer MEDICARE, SELFPAY ==
[2020-12-27 13:15] LABS: Total Protein Urine Random 13 mg/dL
[2020-12-27 13:55] LABS: Total Protein Urine 24 Hr 156 MG/DAY (28-141); Total Volume 24 Hour Urine 1200 ml
== END 2020-12-27 06:42 ==
PROVIDERS: PCP Family Medicine; Visit Provider Family Medicine
DX: R80.9 Proteinuria, unspecified (principal)
CPT/HCPCS: 81050; 84156

== ENCOUNTER 2021-01-22 08:02 | Outpatient (CLI) | payer MEDICARE, SELFPAY ==
[2021-01-22 08:51] LABS: Albumin Level 4.2 g/dL (3.5-5.1); Anion Gap 7 mmol/L (8-16); Blood Urea Nitrogen 81 mg/dL (9-20); Calcium 9.6 mg/dL (8.4-10.2); Carbon Dioxide 34 mmol/L (22-30); Chloride 98 mmol/L (98-107); Estimated Glomerular Filt Rate 17; Glucose 188 mg/dL (75-110); Phosphorus 4.7 mg/dL (2.5-4.5); Potassium 4.3 mmol/L (3.4-5.0); Sodium 139 mmol/L (137-145)
== END 2021-01-22 08:03 | disposition home or self-care (01) ==
PROVIDERS: PCP Family Medicine
DX: E87.5 Hyperkalemia (principal)
CPT/HCPCS: 36415; 80069

== ENCOUNTER 2021-02-08 09:21 | Outpatient (CLI) | payer MEDICARE, SELFPAY ==
[2021-02-08 10:02] LABS: Albumin Level 3.9 g/dL (3.5-5.1); Anion Gap 7 mmol/L (8-16); Blood Urea Nitrogen 54 mg/dL (9-20); Calcium 9.7 mg/dL (8.4-10.2); Carbon Dioxide 28 mmol/L (22-30); Chloride 106 mmol/L (98-107); Estimated Glomerular Filt Rate 24; Glucose 160 mg/dL (75-110); HDL Direct 35 mg/dL; Phosphorus 4.8 mg/dL (2.5-4.5); Potassium 4.4 mmol/L (3.4-5.0); Sodium 141 mmol/L (137-145)
[2021-02-08 10:13] LABS: LDL Cholesterol Direct 47 mg/dL
== END 2021-02-08 09:22 | disposition home or self-care (01) ==
PROVIDERS: PCP Family Medicine; Referring Provider Internal Medicine Endocrinology, Diabetes & Metabolism
DX: N18.4 Chronic kidney disease, stage 4 (severe) (principal); E10.65 Type 1 diabetes mellitus with hyperglycemia; E78.5 Hyperlipidemia, unspecified; E10.40 Type 1 diabetes mellitus with diabetic neuropathy, unspecified
CPT/HCPCS: 36415; 80069; 83718; 83721

== ENCOUNTER 2021-03-18 12:31 | Outpatient (CLI) | payer MEDICARE, SELFPAY ==
[2021-03-18 13:05] LABS: Hematocrit 41.8 % (42.0-52.0); Hemoglobin 13.1 g/dL (14.0-18.0); Mean Corpuscular HGB Conc 31.3 g/dl (32-36); Mean Corpuscular Hemoglobin 28.2 pg (26-34); Mean Corpuscular Volume 89.9 fl (80-100); Mean Platelet Volume 10.3 fl (7.4-10.4); Platelet Count Result 245 k/mm3 (150-375); Red Blood Count 4.65 M/mm3 (4.6-6.20); Red Cell Distribution Width 15.8 % (11.5-14.5); White Blood Count 11.5 K/mm3 (4.5-10.0)
[2021-03-18 13:11] LABS: Add Urine Microscopic? YES; Appearance Urine Clear (Clear); Bilirubin Urine Negative (Negative); Blood Urine Negative (Negative); Color Urine Yellow (Yellow); Glucose Urine UA Negative (Negative); Ketones Urine Negative (Negative); Leukocyte Esterase Ur Negative LEU/UL (NEGATIVE); Mucus Urine Rare /lpf; Nitrate Urine Negative (Negative); Protein Urine 1+ mg/dL (Negative); RBC Urine 0-2 /hpf (0-2); Specific Grav Ur 1.011 (1.001-1.035); Urobilinogen Urine Negative mg/dL (<2.0); WBC Urine 0-3 /hpf (0-3)
[2021-03-18 13:14] LABS: Albumin Level 4.1 g/dL (3.5-5.1); Anion Gap 11 mmol/L (8-16); Blood Urea Nitrogen 73 mg/dL (9-20); Calcium 9.8 mg/dL (8.4-10.2); Carbon Dioxide 29 mmol/L (22-30); Chloride 99 mmol/L (98-107); Estimated Glomerular Filt Rate 17; Glucose 222 mg/dL (75-110); Phosphorus 4.9 mg/dL (2.5-4.5); Potassium 4.8 mmol/L (3.4-5.0); Sodium 139 mmol/L (137-145)
[2021-03-18 13:26] LABS: Parathyroid Intact 75.2 pg/mL (7.5-53.5)
[2021-03-18 14:48] LABS: Vitamin D 25 Hydroxy 74.4 ng/mL
== END 2021-03-18 12:32 | disposition home or self-care (01) ==
PROVIDERS: PCP Family Medicine
DX: N18.4 Chronic kidney disease, stage 4 (severe) (principal); I50.22 Chronic systolic (congestive) heart failure; E87.5 Hyperkalemia; E11.22 Type 2 diabetes mellitus with diabetic chronic kidney disease; N25.0 Renal osteodystrophy
CPT/HCPCS: 36415; 80069; 81001; 82306; 83970; 85027

== ENCOUNTER 2021-04-30 11:27 | Outpatient (CLI) | payer MEDICARE, SELFPAY ==
[2021-04-30 12:17] LABS: Hematocrit 40.8 % (42.0-52.0); Hemoglobin 12.5 g/dL (14.0-18.0); Mean Corpuscular HGB Conc 30.6 g/dl (32-36); Mean Corpuscular Hemoglobin 27.8 pg (26-34); Mean Corpuscular Volume 90.7 fl (80-100); Mean Platelet Volume 11.4 fl (7.4-10.4); Platelet Count Result 191 k/mm3 (150-375); Red Cell Distribution Width 16.7 % (11.5-14.5); White Blood Count 7.9 K/mm3 (4.5-10.0)
[2021-04-30 12:33] LABS: Albumin Level 4.1 g/dL (3.5-5.1); Anion Gap 9 mmol/L (8-16); Blood Urea Nitrogen 51 mg/dL (9-20); Calcium 9.3 mg/dL (8.4-10.2); Carbon Dioxide 29 mmol/L (22-30); Chloride 102 mmol/L (98-107); Estimated Glomerular Filt Rate 25; Glucose 228 mg/dL (65-110); Phosphorus 4.2 mg/dL (2.5-4.5); Potassium 5.2 mmol/L (3.4-5.0); Sodium 140 mmol/L (137-145)
[2021-04-30 12:44] LABS: Parathyroid Intact 107.7 pg/mL (7.5-53.5)
[2021-04-30 13:51] LABS: Add Urine Microscopic? YES; Appearance Urine Clear (Clear); Bacteria Urine Trace /hpf; Bilirubin Urine Negative (Negative); Blood Urine Negative (Negative); Color Urine Yellow (Yellow); Glucose Urine UA Negative (Negative); Ketones Urine Negative (Negative); Leukocyte Esterase Ur Negative LEU/UL (NEGATIVE); Mucus Urine Rare /lpf; Nitrate Urine Negative (Negative); Protein Urine 1+ mg/dL (Negative); RBC Urine 0-2 /hpf (0-2); Specific Grav Ur 1.015 (1.001-1.035); Squamous Epithelial Cell Urine Rare /hpf (Few); WBC Urine 0-3 /hpf (0-3)
== END 2021-04-30 11:28 | disposition home or self-care (01) ==
LOC: ANHLAB 11:35
PROVIDERS: PCP Family Medicine
DX: N18.4 Chronic kidney disease, stage 4 (severe) (principal); E87.5 Hyperkalemia
CPT/HCPCS: 36415; 80069; 81001; 83970; 85027

== ENCOUNTER 2021-05-08 13:55 | Emergency (ER) | payer MEDICARE, SELFPAY ==
[2021-05-08] VITALS (7 sets, daily range): BP systolic 98–118; BP diastolic 43–77; PULSE 70–75; RESP 15–21; TEMP 37; O2SAT 95–98
--- NOTE | ~2021-05-08 | XR_ITS ---
EXAMINATION: XR shoulder RT min 2V INDICATION: Right shoulder pain TECHNIQUE: Four views of the right shoulder are obtained on five radiographs. COMPARISON: 07/31/2020 FINDINGS: Normal alignment. No fracture. There is mild osteoarthritis of the acromioclavicular and gl enohumeral joints. Soft tissues are unremarkable. IMPRESSION: 1. Osteoarthritis without acute osseous abnormality. Reviewed, dictated and finalized at location A.
--- NOTE | ~2021-05-08 | CT_ITS ---
EXAMINATION: CT cervical spine wo con DATE: 05/08/2021 17:02 INDICATION: Head injury TECHNIQUE: Computed tomography (CT) of the cervical spine was performed without intravenous contrast. The dose-length product (DLP) was 578.75 mGy-cm. Automated exposure control and iterative reconstruc tion technique were employed. COMPARISON: None FINDINGS: Bone alignment is normal. There is no fracture. There is moderate loss of intervertebral di sc space height at C5-6 and C6-7. The vertebral body heights are maintained. Small degenerative osteo phytes project from the anterior endplates of multiple vertebral bodies. There is mild multilevel fac et and uncovertebral joint osteoarthritis. IMPRESSION: 1. Moderate cervical spondylosis without acute findings. Reviewed, dictated and finalized at location A.
--- NOTE | ~2021-05-08 | XR_ITS ---
EXAMINATION: XR chest 1V portable INDICATION: Transient alteration of awareness TECHNIQUE: Portable AP chest at 1652 hours COMPARISON: 03/01/2020 FINDINGS: The lungs are free of acute opacities. There is no pleural effusion or pneumothorax. Cardio megaly is noted. Median sternotomy wires are consistent with prior cardiac surgery. A 4-lead cardiac pacemaker of the left chest wall ends with leads in expected locations. IMPRESSION: 1. No acute cardiopulmonary abnormality. Reviewed, dictated and finalized at location A.
--- NOTE | ~2021-05-08 | CT_ITS ---
EXAMINATION: CT brain wo con INDICATION: Head injury COMPARISON: 03/01/2020 TECHNIQUE: Standard unenhanced head CT. The dose-length product (DLP) was 605.33 mGy-cm. The mA was a djusted according to patient size. Iterative reconstruction technique was employed. FINDINGS: There is no acute intraparenchymal hemorrhage. No evidence of mass lesion. No evidence of a cute infarction. There is mild periventricular and subcortical hypodensity probably related to small vessel ischemic disease. There is mild prominence of the sulci and ventricles related to cerebral atr ophy. Intracranial calcified cerebral atherosclerosis is noted. There are no extra-axial collections. There is no mass effect or midline shift. The orbits and soft tissues are unremarkable. The visualiz ed sinuses and mastoid air cells are well aerated. IMPRESSION: 1. No acute intracranial abnormality. 2. Age related findings. Reviewed, dictated and finalized at location A.
--- NOTE | 2021-05-08 14:19 | ECG_ITS ---
Measurements Intervals [place] Rate: 69 P: 235 ND: 201 QRS: -89 QRSD: 200 T: 95 QT: 516 QTc: 556 Interpretive Statements ELECTRONIC ATRIAL PACEMAKER ELECTRONIC VENTRICULAR PACEMAKER NO FURTHER INTERPRETATION IS POSSIBLE ATYPICAL ECG Electronically Signed On 05-08-2021 17:47:00 CDT by Ryley Chavez D.O.
[2021-05-08 14:34] LABS: Basophils Absolute Auto 0.1 K/mm3 (0.0-0.1); Basophils Percent Auto 0.8 % (0.2-1.2); Eosinophils Absolute Auto 0.2 K/mm3 (0-0.3); Eosinophils Percent Auto 2.2 % (0-4.4); Hematocrit 39.6 % (42.0-52.0); Hemoglobin 12.4 g/dL (14.0-18.0); Immature Granulocyte Absolute 0.05 K/mm3 (0.00-0.031); Immature Granulocyte Percent A 0.6 % (0-0.5); Lymphocytes Absolute Auto 1.47 K/mm3 (0.9-3.2); Lymphocytes Percent Auto 16.2 % (18.3-44.2); Mean Corpuscular HGB Conc 31.3 g/dl (32-36); Mean Corpuscular Hemoglobin 28.4 pg (26-34); Mean Corpuscular Volume 90.6 fl (80-100); Mean Platelet Volume 10.5 fl (7.4-10.4); Monocytes Absolute Auto 0.7 K/mm3 (0.1-0.6); Monocytes Percent Auto 7.7 % (2.6-8.5); Neutrophils Absolute Auto 6.6 K/mm3 (1.3-6.7); Neutrophils Percent Auto 72.5 % (45.5-73.1); Platelet Count Result 197 k/mm3 (150-375); Red Blood Count 4.37 M/mm3 (4.6-6.20); Red Cell Distribution Width 16.8 % (11.5-14.5); White Blood Count 9.1 K/mm3 (4.5-10.0)
[2021-05-08 14:46] LABS: Anion Gap 8 mmol/L (8-16); Blood Urea Nitrogen 52 mg/dL (9-20); Calcium 9.1 mg/dL (8.4-10.2); Carbon Dioxide 29 mmol/L (22-30); Chloride 101 mmol/L (98-107); Estimated CRCL calculation 26 ml/min; Estimated Glomerular Filt Rate 19; Glucose 185 mg/dL (65-110); Potassium 4.6 mmol/L (3.4-5.0); Sodium 138 mmol/L (137-145)
[2021-05-08] MEDS: SODIUM CHLORIDE 0.9% IV 500 ML 999 ML IV CONT (17:40)
[2021-05-08 17:47] LABS: Add Urine Microscopic? NO; Appearance Urine Clear (Clear); Bilirubin Urine Negative (Negative); Blood Urine Negative (Negative); Color Urine Yellow (Yellow); Glucose Urine UA Negative (Negative); Ketones Urine Negative (Negative); Leukocyte Esterase Ur Negative LEU/UL (Negative); Nitrate Urine Negative (Negative); Protein Urine Negative (Negative); Urobilinogen Urine Negative mg/dL (<2.0)
[2021-05-08 18:16] LABS: Prothrombin Time 13.4 Seconds (11.1-14.7)
[2021-05-08 18:17] LABS: Partial Thromboplastin Time 25.7 SECONDS (22.3-36.8)
[2021-05-08 18:24] LABS: NT Pro B Type Natriuretic Pept 3570 pg/mL (5-100); Troponin I 0.021 ng/mL (0.000-0.034)
--- NOTE | 2021-05-08 19:38 | ED.GENADULT ---
HPI - General Adult General Chief complaint: Syncope Stated complaint: I blacked out Time Seen by Provider: 05/08/21 14:15 Source: patient and RN notes reviewed Mode of arrival: ambulatory Limitations: no limitations History of Present Illness HPI narrative: Patient is a 66-year-old male who presents after sustaining a syncopal episode just prior to arrival with his with his getting out of the truck when he collapsed to the ground reportedly was only unconscious for a very short period of time patient denies any complaints on arrival and is asymptomatic patient does have a pacemaker and an ICD. Patient is accompanied by his who is an RN at this hospital. Patient denies headache lightheadedness dizziness or recent illness or other complaints. 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 did just recently increase his Lasix Related Data Home Medications Medication Instructions Recorded Confirmed multivitamin 1 tablet PO DAILY 08/23/19 09/29/20 aspirin 81 mg tablet,delayed 81 mg PO DAILY 09/01/19 09/29/20 release rosuvastatin 40 mg tablet 40 mg PO QPM tablet 04/05/20 09/29/20 subcutaneous insulin pump #1 each 04/05/20 07/01/20 amiodarone 400 mg tablet 200 mg PO DAILY 06/21/20 09/29/20 calcitriol 0.25 mcg capsule 0.25 mcg PO DAILY 06/21/20 09/29/20 cholecalciferol (vitamin D3) 100 2,000 unit PO DAILY cap 06/21/20 09/29/20 mcg (4,000 unit) capsule torsemide 20 mg tablet 40 mg PO QAM tablet 10/27/20 Allergies Allergy/AdvReac Type Severity Reaction Status Date / Time vancomycin Allergy Mild Itching at Verified 05/08/21 16:22 IV site Review of Systems Review of Systems: All systems reviewed & are unremarkable except as noted in HPI and below PMFSH Past Medical History Medical History (Updated 05/08/21 @ 19:44 by Prasanth Powell PA-C) CAD (coronary artery disease) 5 vessel CABG April of 2004 RUIZ to LAD occluded LAD patent saphenous vein graft to diagonal occluded saphenous vein graft to circumflex and RCA. Three cardiac stents Congestive heart failure EF of 35% grade 1 diastolic dysfunction Diabetic retinopathy GERD (gastroesophageal reflux disease) History of MRSA infection History of stroke Hyperlipidemia Hypertension Obstructive sleep apnea Unable to tolerate CPAP machine Pancreatitis Surgical History Surgical History H/O inguinal hernia repair On the right History of arthroplasty of right ankle ORIF History of arthroscopy of left knee History of arthroscopy of right knee History of cardiac catheterization History of carpal tunnel repair Bilateral History of cholecystectomy Laparoscopic History of coronary artery stent placement 3 stents History of repair of rotator cuff Bilateral History of right inguinal hernia repair Hx of CABG Five vessel Pacemaker Due to complete heart block Family History Family History Unknown Family history not obtainable due to adoption Social History Social History Social History: 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 No alcohol tobacco drug abuse. He desires to be a full code Smoking status: Never smoker Tobacco type: cigarettes Second hand tobacco smoke exposure: No Alcohol intake: current Drinks per week: 1 Substance use: never Additional occupation/education comments: Had to quit working in 2007 status post CVA Gender identity (if verbalized by the patient): Male Spiritual care concerns: No Agree to blood products: Yes Exam Narrative: GENERAL: Well-appearing, well-nourished, and in no acute distress. HEAD: Normocephalic, atraumatic. EYES: PERRLA and EOMI. ENT: Nares clear, no rhinorrhea or epistaxis. Mucous membranes juliana
== END 2021-05-08 20:16 | disposition home or self-care (01) ==
PROVIDERS: Emergency Medicine Emergency Medical Services; Emergency Provider Emergency Medicine; PCP Family Medicine
DX: R55 Syncope and collapse (principal); I25.10 Atherosclerotic heart disease of native coronary artery without angina pectoris; Z95.1 Presence of aortocoronary bypass graft; K21.9 Gastro-esophageal reflux disease without esophagitis; Z86.14 Personal history of Methicillin resistant Staphylococcus aureus infection; Z86.73 Personal history of transient ischemic attack (TIA), and cerebral infarction without residual deficits; E78.5 Hyperlipidemia, unspecified; I10 Essential (primary) hypertension; G47.33 Obstructive sleep apnea (adult) (pediatric); E11.319 Type 2 diabetes mellitus with unspecified diabetic retinopathy without macular edema; Z95.810 Presence of automatic (implantable) cardiac defibrillator; Z79.4 Long term (current) use of insulin; Z96.41 Presence of insulin pump (external) (internal); Z79.82 Long term (current) use of aspirin; Z96.653 Presence of artificial knee joint, bilateral; Z95.5 Presence of coronary angioplasty implant and graft; M47.812 Spondylosis without myelopathy or radiculopathy, cervical region; M19.011 Primary osteoarthritis, right shoulder
CPT/HCPCS: 36415; 70450; 71045; 72125; 73030; 80048; 81003; 83880; 84484; 85025; 85610; 85730; 93005; 96360; 99284; J7040

== ENCOUNTER 2021-05-24 12:38 | Outpatient (CLI) | payer MEDICARE, SELFPAY ==
--- NOTE | ~2021-05-24 | XR_ITS ---
EXAMINATION: XR chest 2V 05/24/2021 12:59 INDICATION: Shortness of breath PROCEDURE: 2 view chest COMPARISON: Comparison to multiple prior studies sequentially, with oldest reviewed study dated 05/29. FINDINGS: The lungs are clear. The cardiomediastinal silhouette is within normal limits. There are no pleural effusions. There is no pneumothorax suspected. Status post median sternotomy for CABG. P acemaker leads are stable. IMPRESSION: 1: NO ACUTE CARDIOPULMONARY DISEASE. Reviewed, dictated and finalized at location A.
== END 2021-05-24 12:39 | disposition home or self-care (01) ==
PROVIDERS: PCP Family Medicine
DX: R06.02 Shortness of breath (principal)
CPT/HCPCS: 71046

== ENCOUNTER 2021-05-30 09:49 | Outpatient (CLI) | payer MEDICARE, SELFPAY ==
--- NOTE | 2021-05-30 10:00 | ECHO_ITS ---
Patient Info Name: Froylan Vázquez Age: 66 years : 1955 Gender: Male Ht: 70 in Wt: 250 lbs BSA: 2.41 m2 HR: 78 bpm BP: 121 / 81 mmHg Heart Rhythm: Paced Technical Quality: Fair Exam Date: 05/30/2021 10:32 AM Exam Location: [facility] Patient Status: Outpatient Admit Date: 05/30/2021 Staff Ordering Physician: Raymundo Castillo MD Web Developer: Ashley Anand RDCS Attending Provider: Raymundo Castillo MD Referring Physician: Jonathan SORIANO; Exam Type: CA echo doppler color flow Study Info Indications - chronic systolic chf Complete two-dimensional, color flow and Doppler transthoracic echocardiogram is performed. Summary 1. Complete two-dimensional, color flow and Doppler transthoracic echocardiogram is performed. 2. Left ventricular chamber dimension is mildly enlarged. 3. Left ventricular systolic function is severely reduced, estimated at 20-25%. 4. There is mildly increased left ventricular wall thickness. 5. Left ventricular septal wall motion is abnormal with septal motion related to pacing. 6. The left ventricular diastolic function is grade II diastolic dysfunction. 7. Left atrial chamber dimension is mildly enlarged. 8. There is mild aortic valve calcification. 9. There is moderate aortic valve sclerosis. 10. There is mild mitral valve regurgitation. 11. There is mild tricuspid valve regurgitation. 12. Moderate pulmonary hypertension, estimated pulmonary arterial systolic pressure is 45 mmHg. Left Ventricle Left ventricular chamber dimension is mildly enlarged. Left ventricular systolic function is severely reduced, estimated at 20-25%. There is mildly increased left ventricular wall thickness. Left ventricular septal wall motion is abnormal with septal motion related to pacing. The left ventricular diastolic function is grade II diastolic dysfunction. Right Ventricle Right ventricular chamber dimension is normal. Right ventricular systolic function is normal. Left Atria Left atrial chamber dimension is mildly enlarged. Right Atria Right atrial chamber dimension is normal. Atrial Septum Intact interatrial septum visualized by color flow imaging. Aortic Valve The aortic valve is trileaflet. There is moderate aortic valve sclerosis. There is no aortic valve stenosis. There is trace aortic valve regurgitation. There is mild aortic valve calcification. Pulmonic Valve The pulmonic valve is normal. There is no pulmonic valve stenosis. There is trace pulmonic regurgitation. Mitral Valve The mitral valve has normal leaflets. There is no mitral valve stenosis. There is mild mitral valve regurgitation. Tricuspid Valve The tricuspid valve leaflets are normal. There is no significant tricuspid valve stenosis. There is mild tricuspid valve regurgitation. Moderate pulmonary hypertension, estimated pulmonary arterial systolic pressure is 45 mmHg. Pericardium/Pleural The pericardium appears normal. There is no pericardial effusion. Inferior Vena Cava Normal inferior vena cava with >50% collapse upon inspiration consistent with elevated right atrial pressure, 10 mmHg. Aorta The aortic root size at the sinus of Valsalva is normal. The prox ascending aorta size is normal. Left Ventricular Outflow Tract Name Value Normal
== END 2021-05-30 09:50 | disposition home or self-care (01) ==
PROVIDERS: PCP Family Medicine
DX: I50.22 Chronic systolic (congestive) heart failure (principal); I08.3 Combined rheumatic disorders of mitral, aortic and tricuspid valves
CPT/HCPCS: 93306